=== PATIENT | female | born 1940 | race Caucasian/White ===

== ENCOUNTER → 2017-10-30 11:51 | Outpatient (REF) | payer MEDICARE, SELFPAY ==
[2017-10-30 21:19] LABS: Anion Gap 9.7 mmol/L (3-11); BUN 12 mg/dL (7-18); CO2 27.3 mmol/L (21.0-32.0); CREATININE 0.77 mg/dL (0.55-1.02); Calcium 9.8 mg/dL (8.5-10.1); Chloride 100 mmol/L (98-107); Glucose 123 mg/dL (70-100); Sodium 137 mmol/L (136-145)
== END ==
LOC: NCHCN 11:51
PROVIDERS: PCP Physician Assistant Medical; Visit Provider Physician Assistant Medical
DX: E11.9 Type 2 diabetes mellitus without complications (principal); I10 Essential (primary) hypertension
CPT/HCPCS: 80048

== ENCOUNTER → 2017-11-01 02:54 | Outpatient (CLI) | payer MEDICARE, SELFPAY ==
[2017-11-01 08:44] LABS: ALT 30 U/L (12-78); AST 22 U/L (15-37); Albumin 3.6 g/dL (3.4-5.0); Alkaline Phosphatase 62 U/L (46-116); Anion Gap 9.8 mmol/L (3-11); BUN 13 mg/dL (7-18); Bilirubin, Total 1.2 mg/dL (0.2-1.0); CO2 27.2 mmol/L (21.0-32.0); CREATININE 0.81 mg/dL (0.55-1.02); Calcium 9.1 mg/dL (8.5-10.1); Chloride 100 mmol/L (98-107); Glucose 167 mg/dL (70-100); Potassium 3.7 mmol/L (3.5-5.1); Sodium 137 mmol/L (136-145); Total Protein 7.4 g/dL (6.4-8.2)
[2017-11-01 08:45] LABS: Absolute Basophil Count 0.05 k/cumm (0.0-0.2); Absolute Eosinophil Count 0.11 k/cumm (0.0-0.7); Absolute Lymphocyte Count 1.92 k/cumm (1.2-3.4); Absolute Monocyte Count 0.44 k/cumm (0.11-0.7); Absolute Neutrophil Count 2.48 k/cumm (1.2-6.7); Eosinophils % 2.2; HCT 43.2 % (36.0-46.0); Lymphocytes % 38.4; Mean Corp. HGB Concentration 34.7 g/dL (32.0-36.0); Mean Corpuscular Hemoglobin 32.5 pg (27.0-33.0); Mean Corpuscular Volume 93.7 fL (80-95); Mean Platelet Volume 12.2 fL (8.0-11.0); Monocytes % 8.8; Neutrophils % 49.6; Platelet Count 146 x1000/uL (130-400); RBC 4.61 m/cumm (4.00-5.20); RBC Distribution Width 12.7 % (11.7-14.6)
== END ==
PROVIDERS: PCP Physician Assistant Medical; Visit Provider Internal Medicine Medical Oncology
DX: C50.011 Malignant neoplasm of nipple and areola, right female breast (principal); C50.012 Malignant neoplasm of nipple and areola, left female breast; Z17.0 Estrogen receptor positive status [ER+]
CPT/HCPCS: 36415; 80053; 85025

== ENCOUNTER → 2017-11-15 01:02 | Outpatient (CLI) | payer MEDICARE, SELFPAY ==
--- NOTE | 2017-11-15 13:05 | DI.RPTCT_ITS ---
SYMPTOM/DIAGNOSIS: ABNORMAL FINDINGS ON IMAGING OF LUNG R91.[address] 11/[address] examination of the chest was performed. Previous chest CT of 05/08/17 showed diffuse pulmonary emphysematous and fibrotic changes with focal area of vaguely nodular increased radiodensity in the left upper lobe measuring about 13 mm in greatest diameter. This is again seen on today's examination and is unchanged. No new mass or nodularity identified. No pleural effusion. No mediastinal or hilar adenopathy. Tracheal bronchial tree appears intact throughout. Images obtained through the upper abdomen show incidental finding of a rounded calcified medullary right renal lesion which could represent right renal artery aneurysm, this is incompletely imaged at the lower extent of the imaging field. No additional findings in the visualized upper abdomen. CONCLUSION: 1. Stable left upper lobe vaguely nodular radiodensity consistent with scarring, no change from 05/08/17. 2. Rim calcified rounded 13 mm right renal hilar lesion, question renal arterial aneurysm. Correlation with CT angiography of the abdomen should be considered for further evaluation.
== END ==
PROVIDERS: PCP Physician Assistant Medical; Visit Provider Physician Assistant Medical
DX: R91.8 Other nonspecific abnormal finding of lung field (principal); N28.9 Disorder of kidney and ureter, unspecified; I72.2 Aneurysm of renal artery
CPT/HCPCS: 71250

== ENCOUNTER 2018-01-30 08:21 | Outpatient (CLI) | payer MEDICARE, SELFPAY ==
[2018-01-30 09:05] LABS: CREATININE 0.82 mg/dL (0.55-1.02)
== END 2018-01-30 08:41 ==
LOC: LBO 08:23 → NCHCO 08:27
PROVIDERS: PCP Physician Assistant Medical; Visit Provider Physician Assistant Medical
DX: R91.8 Other nonspecific abnormal finding of lung field (principal); Z13.89 Encounter for screening for other disorder
CPT/HCPCS: 36415; 82565

== ENCOUNTER 2018-01-31 01:13 | Outpatient (CLI) | payer MEDICARE, OTHER, SELFPAY ==
--- NOTE | 2018-01-31 10:06 | DI.CT_ITS ---
SYMPTOM/DIAGNOSIS: F/U ABNL FINDINGS ON CT, R91.8, RENAL HILAR LESION, ? RENAL ANEURYSM ABDOMEN AND PELVIC CTA: CT angiography was performed with multi slice acquisition and multi planar and 3D reconstruction. The study was conducted according to the usual protocol with an intravenous administration of 100 cc's of Omnipaque 350. There are some regions of dependent atelectasis involving the lung bases. There is no evidence of a pleural effusion. The heart is not enlarged. There is no pericardial effusion. Diminished absorption is noted in the liver consistent with fatty infiltration. The patient is status post cholecystectomy. There is no evidence of biliary dilatation. The pancreas is normal. The spleen is intact. There is no evidence of right or left hydronephrosis or a right or left renal mass or nephrolithiasis. There is a rounded, well circumscribed calcification in the hilus of the right kidney measuring up to 16 mm. in diameter which would be consistent with a calcified renal artery aneurysm. The left renal artery is unremarkable. Note is made of diffuse atherosclerotic changes but no aneurysm is seen. The celiac axis and mesenteric arteries appear normal. There is no evidence of bowel obstruction. There is nothing to suggest an acute appendix. There is no evidence of diverticulosis or diverticulitis. There is no localized bowel abnormality given that this study was carried out without oral contrast. The bladder is unremarkable. The reproductive organs as visualized are unremarkable. There is no evidence of a mass or adenopathy in the abdomen or pelvis. 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 Please see the above discussion for further information.
[2018-01-31] MEDS: Omnipaque 350 MG/ML 100 ML BTL IJ (10:09)
== END 2018-01-31 01:33 ==
PROVIDERS: PCP Physician Assistant Medical; Visit Provider Nurse Practitioner Family
DX: R91.8 Other nonspecific abnormal finding of lung field (principal); K76.0 Fatty (change of) liver, not elsewhere classified; I72.2 Aneurysm of renal artery; I70.0 Atherosclerosis of aorta
CPT/HCPCS: 74174; J3490

== ENCOUNTER 2018-04-26 01:48 | Outpatient (CLI) | payer MEDICARE, SELFPAY ==
[2018-04-26 07:46] LABS: Abs Immature Grans 0.01 k/cumm (0.0-0.09); Absolute Basophil Count 0.06 k/cumm (0.0-0.2); Absolute Eosinophil Count 0.14 k/cumm (0.0-0.7); Absolute Lymphocyte Count 1.96 k/cumm (1.2-3.4); Absolute Monocyte Count 0.44 k/cumm (0.11-0.7); Absolute Neutrophil Count 2.43 k/cumm (1.2-6.7); Basophils % 1.2; Eosinophils % 2.8; HCT 43.5 % (36.0-46.0); HGB 14.8 g/dL (12.0-15.5); Immature Grans % 0.2; Lymphocytes % 38.9; Mean Corpuscular Hemoglobin 31.6 pg (27.0-33.0); Mean Corpuscular Volume 92.8 fL (80-95); Mean Platelet Volume 11.6 fL (8.0-11.0); Monocytes % 8.7; Neutrophils % 48.2; Platelet Count 169 x1000/uL (130-400); RBC 4.69 m/cumm (4.00-5.20); RBC Distribution Width 12.9 % (11.7-14.6); White Blood Cell Count 5.04 k/cumm (4.4-10.8)
[2018-04-26 07:58] LABS: ALT 27 U/L (12-78); AST 23 U/L (15-37); Albumin 3.5 g/dL (3.4-5.0); Alkaline Phosphatase 55 U/L (46-116); Anion Gap 9.6 mmol/L (3-11); BUN 19 mg/dL (7-18); Bilirubin, Total 0.9 mg/dL (0.2-1.0); CO2 29.4 mmol/L (21.0-32.0); CREATININE 0.82 mg/dL (0.55-1.02); Calcium 9.6 mg/dL (8.5-10.1); Chloride 99 mmol/L (98-107); Cholesterol 167 mg/dL (50-200); Glucose 145 mg/dL (70-100); HDL Cholesterol 59 mg/dL (40-60); LDL CHOLESTEROL 89 mg/dL (<100); Potassium 3.9 mmol/L (3.5-5.1); Sodium 138 mmol/L (136-145); Total Protein 7.5 g/dL (6.4-8.2); Triglyceride 117 mg/dL (30-150)
[2018-04-26 08:01] LABS: Hemoglobin A1C 6.3 % (4.5-6.2)
== END 2018-04-26 02:08 ==
PROVIDERS: PCP Nurse Practitioner Family; Visit Provider Internal Medicine Medical Oncology
DX: C50.011 Malignant neoplasm of nipple and areola, right female breast (principal); C50.012 Malignant neoplasm of nipple and areola, left female breast; Z17.0 Estrogen receptor positive status [ER+]; E11.9 Type 2 diabetes mellitus without complications; I10 Essential (primary) hypertension
CPT/HCPCS: 80053; 80061; 83721; 83036; 85025

== ENCOUNTER 2018-10-31 09:14 | Outpatient (CLI) | payer MEDICARE, SELFPAY ==
[2018-10-31 10:12] LABS: Absolute Basophil Count 0.04 k/cumm (0.0-0.2); Absolute Lymphocyte Count 1.84 k/cumm (1.2-3.4); Absolute Monocyte Count 0.48 k/cumm (0.11-0.7); Absolute Neutrophil Count 2.31 k/cumm (1.2-6.7); Basophils % 0.8; Eosinophils % 2.1; HGB 14.6 g/dL (12.0-15.5); Lymphocytes % 38.6; Mean Corp. HGB Concentration 34.8 g/dL (32.0-36.0); Mean Corpuscular Hemoglobin 32.2 pg (27.0-33.0); Mean Corpuscular Volume 92.7 fL (80-95); Mean Platelet Volume 11.7 fL (8.0-11.0); Monocytes % 10.1; Neutrophils % 48.4; Platelet Count 157 x1000/uL (130-400); RBC 4.53 m/cumm (4.00-5.20); White Blood Cell Count 4.77 k/cumm (4.4-10.8)
[2018-10-31 10:21] LABS: ALT 31 U/L (12-78); AST 22 U/L (15-37); Albumin 3.6 g/dL (3.4-5.0); Alkaline Phosphatase 58 U/L (46-116); Anion Gap 7.5 mmol/L (3-11); BUN 16 mg/dL (7-18); Bilirubin, Total 1.1 mg/dL (0.2-1.0); CO2 28.5 mmol/L (21.0-32.0); CREATININE 0.75 mg/dL (0.55-1.02); Calcium 9.3 mg/dL (8.5-10.1); Chloride 101 mmol/L (98-107); Glucose 133 mg/dL (70-100); Sodium 137 mmol/L (136-145); Total Protein 7.3 g/dL (6.4-8.2)
[2018-11-01 12:19] LABS: Hepatitis A Antibody IgM Negative (NEGAT); Hepatitis B Core Antibody Negative (NEGAT); Hepatitis B surface Ag Negative (NEGAT); Hepatitis C Ab w Rflx HCV PCR Negative (NEGAT)
== END 2018-10-31 09:34 ==
PROVIDERS: PCP Nurse Practitioner Family; Referring Provider Nurse Practitioner Family
DX: C50.411 Malignant neoplasm of upper-outer quadrant of right female breast (principal); Z17.0 Estrogen receptor positive status [ER+]; C50.412 Malignant neoplasm of upper-outer quadrant of left female breast; K76.0 Fatty (change of) liver, not elsewhere classified
CPT/HCPCS: 36415; 80053; 86704; 86709; 86803; 87340; 85025

== ENCOUNTER 2019-01-16 15:34 | Outpatient (REF) | payer MEDICARE, SELFPAY ==
[2019-01-16 20:22] LABS: CREATININE 1.06 mg/dL (0.55-1.02); Estimated GFR 50.27 (mL/min/1.73m2)
[2019-01-16 20:23] LABS: BUN 17 mg/dL (7-18)
== END 2019-01-16 15:54 ==
LOC: LBN 15:34
PROVIDERS: PCP Nurse Practitioner Family; Visit Provider Surgery Vascular Surgery
DX: I72.2 Aneurysm of renal artery (principal)
CPT/HCPCS: 84520; 82565

== ENCOUNTER 2019-03-13 00:57 | Outpatient (CLI) | payer MEDICARE, SELFPAY ==
--- NOTE | 2019-03-13 16:43 | DI.DEXA_ITS ---
EXAM: XR DEXA BONE DENSITY W/WO FRED CLINICAL HISTORY: MALIGNANT NEOPLASM RT BREAST, C50.911, Z17.1, HYPOGONADISM, female COMPARISON: No exams were available for comparison FINDINGS: DEXA scan was performed according to the usual protocol. Findings for left hip scanning are T-score 1.6 with left femoral neck T-score 1.3. Prior examination of September 2010 showed left hip T-score 1.8. Lumbar spine scanning shows T-score 2.3. Prior examination shows T-score 2.1. Left forearm scanning shows T-score 0.4. Prior examination shows T-score 1.3. IMPRESSION: Findings consistent with normal bone density according to WHO criteria. Lateral vertebral scanogram shows no evidence of a vertebral compression fracture.
== END 2019-03-13 01:17 ==
PROVIDERS: PCP Nurse Practitioner Family; Visit Provider Registered Nurse Oncology
DX: E28.39 Other primary ovarian failure (principal); C50.911 Malignant neoplasm of unspecified site of right female breast; Z17.1 Estrogen receptor negative status [ER-]
CPT/HCPCS: 77080

== ENCOUNTER 2019-04-30 07:07 | Outpatient (CLI) | payer MEDICARE, SELFPAY ==
[2019-04-30 07:49] LABS: Anion Gap 9.1 mmol/L (3-11); BUN 17 mg/dL (7-18); CO2 28.9 mmol/L (21.0-32.0); CREATININE 0.74 mg/dL (0.55-1.02); Calcium 9.3 mg/dL (8.5-10.1); Calculated LDL 78 mg/dL (<100); Chloride 100 mmol/L (98-107); Cholesterol 170 mg/dL (<200); Glucose 139 mg/dL (74-106); HDL Cholesterol 51 mg/dL (40-60); Potassium 3.9 mmol/L (3.5-5.1); Sodium 138 mmol/L (136-145); Triglyceride 207 mg/dL (<150)
== END 2019-04-30 07:27 ==
PROVIDERS: PCP Nurse Practitioner Family; Visit Provider Nurse Practitioner Family
DX: E11.9 Type 2 diabetes mellitus without complications (principal); I10 Essential (primary) hypertension; E78.1 Pure hyperglyceridemia
CPT/HCPCS: 36415; 80048; 80061

== ENCOUNTER 2019-05-07 01:05 | Outpatient (CLI) | payer MEDICARE, SELFPAY ==
--- NOTE | 2019-05-07 12:35 | DI.US_ITS ---
EXAM: US AXILLA LT CLINICAL HISTORY: PAIN IN AXILLA M79.629, DULL ACHE, OVER PAST FEW MONTHS, HX BILAT CANCER, BILAT MA STECTOMIES Z85.3 TECHNIQUE: Ultrasound performed using standard protocol. COMPARISON: CHEST WITHOUT CONTRAST from 11/15/2017 FINDINGS: No mass or fluid collection is seen. No abnormalities identified in the area of the patient's pain. Just medial to the area of the patient's pain, there is a normal-appearing axillary lymph node with a fatty hilum and thin wall. It measures 3.1 x 1.1 x 1.7 cm. IMPRESSION: A lymph node with a central fatty hilum is seen in the left axilla, which is medial to the area of th e patient's pain.
== END 2019-05-07 01:25 ==
PROVIDERS: PCP Nurse Practitioner Family; Visit Provider Nurse Practitioner Family
DX: Z85.3 Personal history of malignant neoplasm of breast (principal); Z90.13 Acquired absence of bilateral breasts and nipples; M79.622 Pain in left upper arm; R59.0 Localized enlarged lymph nodes
CPT/HCPCS: 76642

== ENCOUNTER 2019-11-04 09:37 | Outpatient (REF) | payer MEDICARE, SELFPAY ==
[2019-11-04 19:45] LABS: Iron 121 ug/dL (50-170); Total Iron Binding Capacity 365 ug/dL (250-450); Transferrin Sat 33 % (15-50)
[2019-11-04 20:05] LABS: ALT 32 U/L (14-59); AST 24 U/L (15-37); Alkaline Phosphatase 52 U/L (46-116); Anion Gap 11.9 mmol/L (3-11); BUN 16 mg/dL (7-18); Bilirubin, Total 1.2 mg/dL (0.2-1.0); CO2 25.1 mmol/L (21.0-32.0); Calcium 9.7 mg/dL (8.5-10.1); Chloride 100 mmol/L (98-107); Glucose 137 mg/dL (74-106); Potassium 4.1 mmol/L (3.5-5.1); Sodium 137 mmol/L (136-145); Total Protein 7.7 g/dL (6.4-8.2)
[2019-11-04 20:21] LABS: Lipase 141 U/L (73-393)
== END 2019-11-04 09:57 ==
LOC: NCHCN 09:37
PROVIDERS: PCP Nurse Practitioner Family; Visit Provider Nurse Practitioner Family
DX: E11.9 Type 2 diabetes mellitus without complications (principal); I10 Essential (primary) hypertension; R10.11 Right upper quadrant pain
CPT/HCPCS: 80053; 83690; 83540; 83550

== ENCOUNTER 2019-11-13 01:38 | Outpatient (CLI) | payer MEDICARE, SELFPAY ==
--- NOTE | 2019-11-13 | DI.US_ITS ---
EXAM: US ABDOMEN CLINICAL HISTORY: FATTY LIVER DISEASE,K76.0,RUQ ABD PAIN,R10.11,S/P JEMAL TECHNIQUE: Ultrasound performed using standard protocol. COMPARISON: CT CT CHEST W from 11/13/2019 FINDINGS: There is slightly increased liver echogenicity. No focal liver lesions or biliary dilatation is see n. The patient is status post cholecystectomy. The aorta is normal in diameter. The spleen, pancre as and left kidney are unremarkable. There is no right upper quadrant fluid. There is a calcificati on in the right renal hilum noted on previous CT to represent a calcified aneurysm. There is no hydr onephrosis. IMPRESSION: No acute abnormality. DATA REPOSITORY:
--- NOTE | 2019-11-13 | DI.CT_ITS ---
EXAM: CT CHEST W CLINICAL HISTORY: PERSISTENT COUGH, H/O BREAST CA,H/O RENAL ARTERY ANEURYSM,R05 TECHNIQUE: Imaging Protocol: Axial computed tomography images with coronal and sagittal reformatted images were created and reviewed CONTRAST MATERIAL: Intravenous: Omnipaque 350 Contrast volume:100 cc COMPARISON: CT CHEST WITHOUT CONTRAST from 11/15/2017 FINDINGS: Tracheobronchial tree: Patent where visualized. Mediastinum and Rosa: No dominant adenopathy or fluid collection. Pulmonary parenchyma: No consolidation or dominant measurable mass. Mild peripheral fibrotic changes are again noted. There is a stable area of scarring in the left upper lobe.. Pleura: No effusion or pneumothorax. Heart: The heart is not dilated. Mild coronary artery calcifications are seen. Mitral valve calcifi cations. Aorta: Thoracic aorta non-dilated. Moderate calcifications. Heavier calcification in the abdominal po rtion. Upper abdomen: Stable calcified right renal artery aneurysm. Homogeneous, symmetric renal perfusion. Status post cholecystectomy. Lymph nodes: Within normal limits. Bones: No lytic or blastic lesions. Degenerative disc changes. Soft tissues: Status post bilateral mastectomy. IMPRESSION: Stable mild peripheral fibrotic changes. No evidence mass or acute infiltrate. RADIATION DOSE DELIVERED: 596.54mGy.cm Total DLP DATA REPOSITORY: All CT scans at this facility are submitted to the National Radiology Data Registry (NRDR) Dose Index Registry (DIR) with the [employer] (ACR). RADIATION OPTIMIZATION: All CT scans at this facility use at least one of these dose optimization te chniques: automated exposure control; mA and/or kV adjustment per patient size (includes targeted exa ms where dose is matched to clinical indication); or iterative reconstruction.
[2019-11-13] MEDS: Normal Saline - Diluent 50 ML VIAL IV (08:50)
[2019-11-13] MEDS: Normal Saline Flush 10 ML SYR IVP (08:50)
[2019-11-13] MEDS: Omnipaque 350 MG/ML 100 ML BTL IJ (08:51)
== END 2019-11-13 01:58 ==
PROVIDERS: PCP Nurse Practitioner Family; Visit Provider Nurse Practitioner Family
DX: R05 Cough (principal); Z85.3 Personal history of malignant neoplasm of breast; Z86.79 Personal history of other diseases of the circulatory system; K76.0 Fatty (change of) liver, not elsewhere classified; R10.11 Right upper quadrant pain
CPT/HCPCS: 71260; 76700; J3490

== ENCOUNTER 2019-11-18 16:52 | Outpatient (REF) | payer MEDICARE, SELFPAY ==
[2019-11-18 20:17] LABS: Ferritin 167 ng/mL (8-252)
== END 2019-11-18 17:12 ==
LOC: NCHCN 16:52
PROVIDERS: PCP Nurse Practitioner Family; Visit Provider Nurse Practitioner Family
DX: K76.0 Fatty (change of) liver, not elsewhere classified (principal); R10.11 Right upper quadrant pain
CPT/HCPCS: 82728

== ENCOUNTER 2019-11-25 07:12 | Outpatient (CLI) | payer MEDICARE, SELFPAY ==
[2019-11-26 14:28] LABS: COVID-19 RT-PCR Result NEGATIVE (Negative)
== END 2019-11-25 07:32 ==
PROVIDERS: Family Medicine; PCP Nurse Practitioner Family; Visit Provider Nurse Practitioner Family
DX: R05 Cough (principal)
CPT/HCPCS: U0003

== ENCOUNTER → 2019-11-26 10:31 | Outpatient (BNVA) | payer MEDICARE, SELFPAY | PROVIDERS: PCP Nurse Practitioner Family; Referring Provider Nurse Practitioner Family; Visit Provider Internal Medicine Cardiovascular Disease | DX: R07.9 Chest pain, unspecified (principal); I25.10 Atherosclerotic heart disease of native coronary artery without angina pectoris; I10 Essential (primary) hypertension | CPT/HCPCS: 99203; 99214 ==

== ENCOUNTER 2019-11-28 04:38 | Outpatient (CLI) | payer MEDICARE, SELFPAY ==
[2019-11-28] MEDS: Albuterol HFA 18 GM 200 PUFF INH IH (10:07)
[2019-11-28] MEDS: Methacholine 100 MG VIAL IH (10:07)
[2019-11-28] MEDS: Inhaler, Assist Device 1 EACH MC (10:08)
--- NOTE | 2019-12-04 07:39 | W.PFT ---
Date of service: 11/28/19 Time of Service: 08:03 Pulmonary Function Test Result Interpretation Spirometry: No evidence of obstructive airways disease, no bronchodilator response Lung Volumes: No evidence of restriction Diffusion Capacity: Normal Airway Pressure: Normal Impression Normal pulmonary function study, clinical correlation recommended This study was compared to previous one from 09/01/2006, patient has a total of 520 cc decline in FVC, FEV1 has remained stable, diffusion capacity has largely remained stable, although alveolar volume has declined Methacholine Challnege Test Date of Service Date of Service: 2019 Note After normal pulmonary function test methacholine challenge testing was carried out up to methacholine concentration of 16 mg/mL. At that point there was a 17% drop in FEV1. Impression Negative methacholine challenge test. It is of concern, that there was progressive decline in FEV1 with increasing concentration of methacholine, though the magnitude did not meet criteria for positive test. Clinical correlation recommended
== END 2019-11-28 04:58 ==
PROVIDERS: PCP Nurse Practitioner Family; Visit Provider Nurse Practitioner Family
DX: R05 Cough (principal)
CPT/HCPCS: 94060; 94726; 94729; 95070; 94010; J7674

== ENCOUNTER 2019-12-09 00:40 | Outpatient (CLI) | payer MEDICARE, SELFPAY ==
--- NOTE | 2019-12-09 07:00 | DI.NM_ITS ---
APPROVED REPORT Exam: Exercise Treadmill Patient Location: Out-Patient Room/Bed: Stress Nurse: Stephanie Doe RN BMI: 31.88 Baseline Rhythm: Sinus Rhythm, First Degree Heart Block. Abnormal R wave progression, early transitio n. Borderline prolonged QT interval. Indications: Over the last few months patient reports left sided sharp chest pain mostly when she get s in bed at night time and lies on left side. She states discomfort does not last more than a few min utes and is not associated with any other symptoms. She also reports ???bouts of dizziness??? when ch anging positions (lying to sitting and sitting to standing) even when she takes her time getting up. Medical History Medical History: Incomplete RBBB. Cardiac Medications: Hydrochlorothiazide. Allergies: Red Yeast Rice, Lisinopril, Adhesive, Aspirin, Codeine, Meperidine, Niacin. Cardiac Risk Factors: FHX of CAD, HTN, Diabetes (non-insulin) Previous Cardiac Procedures: None Pretest Chest Pain Characteristics: None reported per patient. Exercise History: Physically active Physical Disabilities: None Lung Sounds: Clear to auscultation Heart Sounds: Regular Stress Test Details Test: Exercise stress testing was performed using a Landon protocol. Nuclear Acquisition: Rest Tc-99m/Stress Tc-99m 1 day Rest Isotope: Tc-99m Sestamibi. Dose: 10.7 Date: 12/09/2019 Injection Time: 0840 Stress Isotope: Tc-99m Sestamibi. Dose: 30.2 Date: 12/09/2019 Injection Time: 1015 HR Resting HR Supine: 64 bpm Max Heart Rate (APMHR): 142 bpm Resting HR Standin bpm Target HR (85% APMHR): 120 bpm Max HR Achieved: 133 bpm % of APMHR: 93 HR response to stress: Normal HR response to stress BP Resting BP Supine: 128/66 mmHg Resting BP Standin/68 mmHg Max BP: 144/64 mmHg BP response to stress: Normal blood pressure response to stress. ECG Resting ECG: Sinus Rhythm, First Degree Heart Block. Abnormal R wave progression. Stress ECG: No significant ST segment changes noted. Arrhythmia: None Recovery ECG: Sinus Rhythm Recovery ST Change: Normal Recovery Arrhythmia: None Clinical Reason for Termination: Dyspnea Stress Symptoms: Dyspnea Exercise duration: 3 min01 sec Highest Stage Reached: Stage 2: 2.5 mph at 12% grade. Exercise capacity: 4.65 METs Functional Capacity: Mildly deminished capacity Stress ECG Conclusion 1. The patient exercised for 3 minutes (5 METS) exercise was stopped due to dyspnea. 2. The patient had no evidence of ischemia on the EKG portion of the exam. Stress Test Summary STAGE Time (mins) Speed (mph) Grade (%) HR BP SYMPTOMS METS Supine 64 128/66 Standing 69 130/68 1 3 1.7 10 133 4.6 1 min recovery 118 138/60 3 min recovery 89 144/64 6 min recovery 83 130/68 9 min recovery 77 124/70 MPI Conclusion Ejection fraction was 57% with stress. There were no wall motion abnormalities. There is a small area of decreased perfusion at the apex in both rest and stress imaging likely repre senting artifact. Given the amount of bowel uptake, this likely represents a normal SPECT stress test. Radiologist Interpretation Radiologist agrees with [facility] Hand's Interpretation. Radiologist Interpretation by: Gabriel Jauregui MD Interpretation Date/Time: 12/09/2019 14:43:46
== END 2019-12-09 01:00 ==
PROVIDERS: PCP Nurse Practitioner Family; Visit Provider Internal Medicine Cardiovascular Disease
DX: R07.9 Chest pain, unspecified (principal); R42 Dizziness and giddiness; Z82.49 Family history of ischemic heart disease and other diseases of the circulatory system; I10 Essential (primary) hypertension; E11.9 Type 2 diabetes mellitus without complications; I45.10 Unspecified right bundle-branch block
CPT/HCPCS: 78452; 93016; 93018; 93017

== ENCOUNTER → 2019-12-17 14:30 | Outpatient (BNVA) | payer MEDICARE, SELFPAY | PROVIDERS: PCP Nurse Practitioner Family; Referring Provider Nurse Practitioner Family; Visit Provider Internal Medicine Cardiovascular Disease | DX: I25.10 Atherosclerotic heart disease of native coronary artery without angina pectoris (principal); I10 Essential (primary) hypertension; Z71.2 Person consulting for explanation of examination or test findings | CPT/HCPCS: 99212; 99441 ==

== ENCOUNTER 2020-02-28 21:47 | Outpatient (REF) | payer MEDICARE, SELFPAY | END 2020-02-28 22:07 | LOC: NCHCN 21:47 | PROVIDERS: PCP Nurse Practitioner Family; Visit Provider Nurse Practitioner Family | DX: R35.0 Frequency of micturition (principal) | CPT/HCPCS: 87086 ==

== ENCOUNTER 2020-04-21 03:51 | Outpatient (CLI) | payer MEDICARE, SELFPAY ==
[2020-04-21 10:13] LABS: Anion Gap 9.4 mmol/L (3-11); BUN 17 mg/dL (7-18); CO2 28.6 mmol/L (21.0-32.0); CREATININE 0.79 mg/dL (0.55-1.02); Calcium 9.5 mg/dL (8.5-10.1); Calculated LDL 88 mg/dL (<100); Chloride 99 mmol/L (98-107); Cholesterol 180 mg/dL (<200); Glucose 145 mg/dL (74-106); HDL Cholesterol 60 mg/dL (40-60); Potassium 3.9 mmol/L (3.5-5.1); Sodium 137 mmol/L (136-145); Triglyceride 163 mg/dL (<150)
[2020-04-22 11:28] LABS: Hepatitis C Ab w Rflx HCV PCR Negative (Negative)
== END 2020-04-21 04:11 ==
PROVIDERS: PCP Nurse Practitioner Family; Visit Provider Nurse Practitioner Family
DX: I10 Essential (primary) hypertension (principal); E11.9 Type 2 diabetes mellitus without complications; Z11.59 Encounter for screening for other viral diseases
CPT/HCPCS: 36415; 80048; 80061; 86803

== ENCOUNTER 2020-05-12 01:11 | Outpatient (CLI) | payer MEDICARE, SELFPAY ==
--- NOTE | 2020-05-12 | DI.MRI_ITS ---
EXAM: MR LUMBAR SPINE WO/W CLINICAL HISTORY: RT LOW BACK PAIN, M54.5,RT LEG WEAKNESS,H/O BREAST CA. TECHNIQUE: Multiplanar multisequence MRI was performed. COMPARISON: No exams were available for comparison FINDINGS: MR examination lumbosacral spine was performed according to the usual protocol with additional pre an d post contrast T1 weighted fat sat imaging. Patient reportedly has a history of breast carcinoma. No bony signal abnormality seen. No evidence of an enhancing lesion of the bones in the lumbar regio n. Conus medullaris appears intact. No significant findings at T11-12 or T12-L1 levels. Slight disc bulge noted at L1-2 level, no central canal spinal stenosis, neural foraminal stenosis, o r disc herniation. At L2-3, there is mild hypertrophic degenerative change of the facet joints. There is a moderate dis c bulge. No disc herniation, central canal spinal stenosis, or neural foraminal stenosis. There may be a minimal annular disc tear. At the L3-4 level, there is a moderate disc bulge and there is moderate facet hypertrophic degenerati ve change. There is mild central canal spinal stenosis. There is a disc bulge without evidence of a focal disc herniation. No neural foraminal stenosis. At L4-5, there is a moderate disc bulge. There is moderate facet hypertrophic degenerative change. There is mild central canal spinal stenosis. There is no evident neural foraminal stenosis or disc h erniation. At L5-S1, there is a mild disc bulge and there is a small right paracentral disc herniation which pro jects above the disc level, this could impinge the right L1 nerve root, please correlate with the pat ient's neurologic examination. No bony central canal spinal stenosis or neural foraminal stenosis. Mild facet hypertrophic degenerative changes. IMPRESSION: Mild central canal spinal stenosis at L3-4 and L4-5. Small right paracentral disc herniation at L5-S1, question impingement on right S1 nerve root. Pleas e correlate clinically. No evidence of bony metastatic disease. DATA REPOSITORY:
[2020-05-12] MEDS: Gadoterate meglumine 20 ML VIAL 16 ML IVP (09:29)
[2020-05-12] MEDS: Normal Saline Flush 10 ML SYR IVP (09:30)
== END 2020-05-12 01:12 ==
LOC: DI 01:14
PROVIDERS: PCP Nurse Practitioner Family; Visit Provider Nurse Practitioner Family
DX: M48.061 Spinal stenosis, lumbar region without neurogenic claudication (principal); M51.27 Other intervertebral disc displacement, lumbosacral region
CPT/HCPCS: 72158

== ENCOUNTER → 2020-06-15 08:00 | Outpatient (BNVA) | payer MEDICARE, SELFPAY | PROVIDERS: PCP Nurse Practitioner Family; Referring Provider Nurse Practitioner Family; Visit Provider Student in an Organized Health Care Education/Training Program | DX: M70.61 Trochanteric bursitis, right hip (principal) | CPT/HCPCS: 99213 ==

== ENCOUNTER 2020-10-28 03:25 | Outpatient (CLI) | payer MEDICARE, SELFPAY ==
[2020-10-28 09:04] LABS: Anion Gap 10.1 mmol/L (3-11); BUN 20 mg/dL (7-18); CO2 27.9 mmol/L (21.0-32.0); CREATININE 0.9 mg/dL (0.55-1.02); Calcium 9.5 mg/dL (8.5-10.1); Chloride 101 mmol/L (98-107); Glucose 142 mg/dL (74-106); Potassium 4.1 mmol/L (3.5-5.1); Sodium 139 mmol/L (136-145)
== END 2020-10-28 03:26 | disposition home or self-care (01) ==
LOC: LBO 03:28
PROVIDERS: PCP Nurse Practitioner Family; Visit Provider Nurse Practitioner Family
DX: E11.9 Type 2 diabetes mellitus without complications (principal); I10 Essential (primary) hypertension
CPT/HCPCS: 36415; 80048; 83036

== ENCOUNTER 2020-11-03 10:34 | Outpatient (REF) | payer MEDICARE, SELFPAY ==
[2020-11-03 21:40] LABS: HCT 40.5 % (36.0-46.0); HGB 13.9 g/dL (11.2-15.7); MCH 31.9 pg (27.0-33.0); MCHC 34.3 % (32.0-36.0); MCV 92.9 fL (80-95); MPV 12.9 fL (8.0-11.0); Platelet Count 175 10^3/uL (130-400); RBC 4.36 10^6/uL (3.93-5.22); RDW 12.2 % (11.7-14.6)
[2020-11-03 21:57] LABS: ALT 37 U/L (14-59); AST 24 U/L (15-37); Albumin 3.9 g/dL (3.4-5.0); Alkaline Phosphatase 48 U/L (46-116); Bilirubin, Direct 0.2 mg/dL (0.0-0.2); Bilirubin, Total 1.2 mg/dL (0.2-1.0); Total Protein 7.3 g/dL (6.4-8.2)
== END 2020-11-03 10:35 | disposition home or self-care (01) ==
LOC: NCHCN 10:34
PROVIDERS: PCP Nurse Practitioner Family; Visit Provider Nurse Practitioner Family
DX: K76.0 Fatty (change of) liver, not elsewhere classified (principal)
CPT/HCPCS: 80076; 85027

== ENCOUNTER → 2020-12-24 13:59 | Outpatient (BNVA) | payer MEDICARE, SELFPAY | PROVIDERS: PCP Nurse Practitioner Family; Referring Provider Nurse Practitioner Family; Visit Provider Internal Medicine Cardiovascular Disease | DX: I25.10 Atherosclerotic heart disease of native coronary artery without angina pectoris (principal); I10 Essential (primary) hypertension | CPT/HCPCS: 99213 ==

== ENCOUNTER 2020-12-30 12:23 | Outpatient (REF) | payer MEDICARE, SELFPAY ==
--- OUTSIDE RECORDS SUMMARY | 2020-12-30 12:34 | XMS_ITS ---
:1940 Author Care Team Providers Name Role Phone DR. JILLIAN CUEVAS Primary Care Provider [phone] DR. GHAZAL LOPEZ Referring Provider [phone] RIVAS CARLOS MD OTHER [phone] JOHNNY GARCÍA APRN Primary Care Provider [phone] Allergies Code Code System Name Reaction Severity Status Onset Adhesive Tape ? ? Active ? 1191 RxNorm Aspirin ? ? Active ? 2670 RxNorm Codeine Nausea ? Active ? 913175 RxNorm Demerol Other ? Active ? 27315 RxNorm Lisinopril Cough ? Active ? 8211 RxNorm Niacin ? ? Active ? 101078 RxNorm Red Yeast Rice ? ? Active ? Medications Name Status Start Date Stop Date ? ? acyclovir 800 mg tablet Unknown ? Not avai lable amoxicillin 875 mg-potassium Completed ? clavulanate 125 mg tablet anastrozole 1 mg tablet Active ? Not avai lable TAKE ONE TABLET BY MOUTH EVERY DAY azithromycin 250 mg tablet Completed ? 09/24 Benefiber Clear SF (dextrin) Completed ? 09/2019 cholecalciferol (vit D3) 1,000 unit-vitamin K2 (MK4) 100 mcg tab let Active ? Not available Take by oral route. clindamycin phosphate 1 % topical Completed ? 09/06/2017 solution Fish Oil Active ? Not available fluticasone propionate 50 mcg/actuation Active ? Not available nasal spray,suspension Glucosamine Active ? Not available hydrochlorothiazide 25 mg tablet Active ? Not available TAKE ONE TABLET BY MOUTH EVERY DAY ketoconazole 2 % topical cream Completed ? 1 05/14/2016 lansoprazole 30 mg capsule,delayed release Active ? Not available TAKE ONE CAPSULE BY MOUTH AT BEDTIME magnesium Active ? Not available metformin 500 mg tablet Completed ? 10/01/19 metformin ER 500 mg tablet,extended release 24 hr Active ? Not available TAKE ONE TABLET BY MOUTH TWICE A DAY multivitamin Active ? Not available nitrofurantoin monohydrate/macrocrystals 100 mg capsule Active ? Not available TAKE ONE CAPSULE BY MOUTH TWICE A DAY FOR 5 DAYS OneTouch Ultra Test strips Active ? Not a vailable USE 1 STRIP TWICE A DAY DIRECTED Prevacid Active ? Not available Ventolin HFA 90 mcg/actuation aerosol Active ? Not available inhaler Problems Name Status Onset Date Source ? Malignant Tumor of Breast Active ? Encoun ter Abnormal Findings on Diagnostic Imaging of Active ? Encounter Breast Breast Lump Active ? Encounter Procedures Date Name Performed by ? 08/20/2015 Mastectomy and [place] Node Biopsy Info rmation not available Notes: T1cN0 IDC, with multiquadrant DCIS 08/20/2015 Prophylactic Contralateral Mastectomy In formation not available Notes: T1cNX ILC 07/30/2015 Stereotactic Breast Biopsy Information n ot available Notes: UIQ right IDC /1+ ? Cholecystectomy Information not avai lable ? Tubal Ligation Information not avai lable Results Lab Results None recorded. Past Encounters 10/21/2020 Malignant Tumor of Breast Lupe Ovalle MD: [address] [place] [address], [address] [phone], [place]. 10/01/2019 Malignant Tumor of Breast Lupe Ovalle MD: [address] [place] [address], [address] [phone], [place]. Social History Tobacco Smoking Status Former Smoker Notes: quit 15 years ago Vaccine List Vaccine Type COVID-19, mRNA, LNP-S, PF, 100 mcg/0.5 m L dose 04/23/2020 05/22/2020 Plan of Care Reminders Provider Appointments None ? ? recorded. Lab None ? ? recorded. Referral None ? ? recorded. Procedures None ? ? recorded. Surgeries None ? ? recorded. Imaging None ? ? recorded. Vitals 10/21/2020 11:30AM FOLLOW UP Height Weight BMI 5 ft 3 in 180 lbs 31.9 kg/m2 10/01/2019 11:00AM FOLLOW UP Height Weight BMI 5 ft 3 in 180 lbs 31.9 kg/m2 09/24/2018 01:00PM FOLLOW UP Height Weight BMI 5 ft 3 in 194 lbs 34.4 kg/m2 09/06/2017 10:30AM FOLLOW UP Height Weight BMI 5 ft 3 in 194 lbs 34.4 kg/m2 03/13/2017 01:00PM FOLLOW UP Height Weight BMI 5 ft 3 in 194 lbs 34.4 kg/m2 09/06/2016 01:00PM FOLLOW UP Height Weight BMI 5 ft 3 in 194 lbs 34.4 kg/m2 03/09/2016 01:00PM FOLLOW UP Height Weight BMI 5 ft 3 in 194 lbs 34.4 kg/m2 08/06/2015 01:15PM NEW CANCER Height Weight BMI 5 ft 3 in 196 lbs 34.7 kg/m2 07/27/2015 09:00AM NEW PT Height Weight BMI 5 ft 3 in 196 lbs 34.7 kg/m2
--- OUTSIDE RECORDS SUMMARY | 2020-12-30 12:35 | XMS_ITS | Encounter Summary ---
:1940 Author Care Team Providers Name Role Phone Dr. Henna Otero Primary Care Provider [phone] Jen Celeste APRN Primary Care Provider [phone] Dr. Amber Mendoza Referring Provider [phone] Tevin Mederos MD OTHER [phone] Reason for Visit Malignant tumor of breast Assessment and Plan 1. Malignant tumor of breast Patient is doing well without evidence of recurrent disease. She will return to see me in 12 months o r sooner if problems arise with her imaging or self exam. Continue AI. Discussion Note: None recorded.Patient educational handouts: No information available. Plan of Care Reminders Provider Appointments Follow up on or around Kim Ovalle, 10/21/2021 Lab None ? ? recorded. Referral None ? ? recorded. Procedures None ? ? recorded. Surgeries None ? ? recorded. Imaging None ? ? recorded. Medications Name Start Date ? ? anastrozole 1 mg tablet ? TAKE ONE TABLET BY MOUTH EVERY DAY cholecalciferol (vit D3) 1,000 unit-vitamin K2 (MK4) 1 00 mcg tablet ? Take by oral route. Fish Oil ? fluticasone propionate 50 mcg/actuation nasal spray,mendez spension ? Glucosamine ? hydrochlorothiazide 25 mg tablet ? TAKE ONE TABLET BY MOUTH EVERY DAY lansoprazole 30 mg capsule,delayed release ? TAKE ONE CAPSULE BY MOUTH AT BEDTIME magnesium ? metformin ER 500 mg tablet,extended release 24 hr ? TAKE ONE TABLET BY MOUTH TWICE A DAY multivitamin ? nitrofurantoin monohydrate/macrocrystals 100 mg capsul e ? TAKE ONE CAPSULE BY MOUTH TWICE A DAY FOR 5 DAYS OneTouch Ultra Test strips ? USE 1 STRIP TWICE A DAY DIRECTED Prevacid ? Ventolin HFA 90 mcg/actuation aerosol inhaler ? Medications Administered None recorded. Vitals Height Weight BMI 5 ft 3 in 180 lbs 31.9 kg/m2 Results Lab Results None recorded. Allergies Code Code System Name Reaction Severity Onset Adhesive Tape ? ? ? 1191 RxNorm Aspirin ? ? ? 2670 RxNorm Codeine Nausea ? ? 777389 RxNorm Demerol Other ? ? 96190 RxNorm Lisinopril Cough ? ? 2717 RxNorm Niacin ? ? ? 357083 RxNorm Red Yeast Rice ? ? ? Problems Name Status Onset Date Source ? Malignant Tumor of Breast Active ? Encoun ter Abnormal Findings on Diagnostic Imaging of Active ? Encounter Breast Breast Lump Active ? Encounter Procedures Date Name Performed by ? 08/20/2015 Mastectomy and [place] Node Biopsy Info rmation not available Notes: T1cN0 IDC, with multiquadrant DCIS 08/20/2015 Prophylactic Contralateral Mastectomy In formation not available Notes: T1cNX ILC 07/30/2015 Stereotactic Breast Biopsy Information n ot available Notes: UIQ right IDC /1+ ? Cholecystectomy Information not avai lable ? Tubal Ligation Information not avai lable Vaccine List Vaccine Type COVID-19, mRNA, LNP-S, PF, 100 mcg/0.5 m L dose 04/23/2020 05/22/2020 Social History Tobacco Smoking Status Former Smoker Notes: quit 15 years ago What is your level of alcohol None consumption? Marital status What was the date of your most 09/24/2018 recent tobacco screening? 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 Relation Problem Onset Age of Age Notes Daughter Malignant tumor of 46 N/A BRCA 1,2 neg breast Breast ovarian large panel - Victorina Rast Daughter Leukemia 55 N/A (No Notes) Father Malignant tumor of 71 N/A (No Notes ) pancreas Maternal Aunt Malignant neoplasm of (No N/A (No N otes) uterus Information) Maternal Uncle Malignant tumor of lung (No N/A (N o Notes) Information) Paternal Aunt Malignant neoplasm of (No N/A bone, stomach uterus Information) Paternal Grandmother Malignant tumor of 55 N/A ( No Notes) breast Paternal Grandfather Malignant tumor of colon (No N/A (No Notes) Information) Sister Malignant tumor of 60 79 (No Notes ) breast Son Malignant neoplasm of (No N/A (No No chandler) skin Information) Son Hemochromatosis (No N/A (No Notes) Information) Brother Hemochromatosis (No N/A (No Notes) Information) Unspecified Relation Hemochromatosis (No N/A neph ew Information) Functional Status Unknown. Past Encounters 10/21/2020 Malignant Tumor of Breast Lupe Ovalle MD: [id number] [facility], [address], [place] [address], Ph. History of Present Illness ? Breast Cancer Follow up Reported By: Patient HPI: Location: bilateral. Identif ied: routine mammogram. Pathology: date of Diagnosis:, Invasive Cancer T1c, N0, T1c, N0, T1c, N0, , ER positive, TN positive, HER 2 negative, On cotypeDx Recurrence score: 23; AI Notes: Lissa comes in for follow up. She feels well and has no complaints. Review of Systems ? Breast Follow up Reported By: Patient Constitutional: Constitutional: no significa nt weight change, happy/content, normal activity level, no fa tigue ENMT: ENMT: no hoarseness, no diff iculty swallowing; hearing loss Cardiovascular: Cardiovascular: no chest melissa n, normal heart rate Chest/Breasts: Breasts: no lumps, no tender ness, no discharge, no change in breast skin, no 'orange peel ' appearance Respiratory: Respiratory: no cough, no pa in with respiration, normal respiration Gastrointestinal: GI: no abdominal pain, no na usea, no vomiting, no constipation, no blood in st ools, No abdominal distension; reflux Genitourinary: : no vaginal dryness Musculoskeletal: Musculoskeletal: no lymphede ma, no joint swelling, no myalgia, moves all extremities well, no joint pain Skin: Skin: no redness, no rash, n o hives, no skin lesions Neurological symptoms: Neuro: no numbness, no weakn ess, no tingling, no shooting pain, no headache, no dizzin ess Psychiatric: Psych: no depression, no anx iety, no insomnia, no stress, no loss of interest Endocrine: Endocrine: no easy bruising, hot flashes Physical Exam ? Breast Exam Reported By: Patient Constitutional: General Appearance: healthy- appearing, well-nourished, well-develop ed Lymph Nodes: Axillary Normal axillary exa m: bilaterally, no tenderness. Cervical No cerv ical adenopathy. Supraclavicular No supraclav icular adenopathy Breast exam in the sitting and supine Inspection/Palpa tion: no skin changes, no positions: erythema, no induration, no tenderness, no distinct masses, normal axil andie lymph nodes; well healed bilateral mastec juanita scars with dimpling centrally on the ri ght side and no nodularity Musculoskeletal: Extremities/skeletal: No swe lling of the left arm, no spinous or bony tend erness, No swelling of the right arm Abdomen: Inspection/Palpation: soft, non-distended, no tenderness, no hepatomegaly, no splenomegaly, no masses Notes: Left axillary US negative fo r suspicious appearing LN's.
[2021-01-01 12:09] LABS: COVID-19 RT-PCR UVMMC Result Negative (Negative)
== END 2020-12-30 12:24 | disposition home or self-care (01) ==
LOC: NCHCN 12:23
PROVIDERS: PCP Nurse Practitioner Family; Visit Provider Nurse Practitioner Family
DX: Z20.822 Contact with and (suspected) exposure to COVID-19 (principal); R05.3 Chronic cough
CPT/HCPCS: U0003

== ENCOUNTER 2021-01-29 03:39 | Outpatient (CLI) | payer MEDICARE, SELFPAY ==
[2021-01-29 12:04] LABS: BUN 18 mg/dL (7-18); CREATININE 0.8 mg/dL (0.55-1.02)
== END 2021-01-29 03:40 | disposition home or self-care (01) ==
LOC: LBO 03:39
PROVIDERS: PCP Nurse Practitioner Family; Visit Provider Surgery Vascular Surgery
DX: I72.2 Aneurysm of renal artery (principal)
CPT/HCPCS: 36415; 84520; 82565

== ENCOUNTER 2021-05-06 02:40 | Outpatient (CLI) | payer MEDICARE, SELFPAY ==
[2021-05-06 07:27] LABS: HGB 14.5 g/dL (11.2-15.7); MCH 31.7 pg (27.0-33.0); MCHC 33.7 % (32.0-36.0); MCV 93.9 fL (80-95); MPV 11.3 fL (8.0-11.0); Platelet Count 174 10^3/uL (130-400); RBC 4.58 10^6/uL (3.93-5.22); RDW 12.6 % (11.7-14.6); RDW-SD 43.6 fL; WBC 4.35 10^3/uL (4.4-10.8)
[2021-05-06 08:04] LABS: Hemoglobin A1C 6.2 % (<5.7)
[2021-05-06 08:52] LABS: ALT 30 U/L (14-59); AST 22 U/L (15-37); Albumin 3.9 g/dL (3.4-5.0); Alkaline Phosphatase 50 U/L (46-116); Bilirubin, Direct 0.2 mg/dL (0.0-0.2); Bilirubin, Total 0.9 mg/dL (0.2-1.0); Total Protein 7.6 g/dL (6.4-8.2)
[2021-05-06 09:19] LABS: Calculated LDL 97 mg/dL (<100); Cholesterol 194 mg/dL (<200); HDL Cholesterol 59 mg/dL (40-60); Triglyceride 191 mg/dL (<150)
== END 2021-05-06 02:41 | disposition home or self-care (01) ==
LOC: LBO 02:40
PROVIDERS: PCP Nurse Practitioner Family; Visit Provider Nurse Practitioner Family
DX: E11.9 Type 2 diabetes mellitus without complications (principal); E78.1 Pure hyperglyceridemia; K76.0 Fatty (change of) liver, not elsewhere classified
CPT/HCPCS: 36415; 80061; 80076; 85027; 83036

== ENCOUNTER 2021-07-05 11:14 | Outpatient (REF) | payer MEDICARE, SELFPAY ==
[2021-07-05 14:19] LABS: Bacteria Few HPF (Negative); Crystals Negative HPF (Negative); Epithelial Cells Few HPF (Negative); Mucus Trace (Negative); Other Cells Few Renal (Negative); RBC 20-50 HPF (0-2); WBC 20-50 HPF (0-5)
[2021-07-05 14:20] LABS: C & S Indicated? C&S Done As Ordered
== END 2021-07-05 11:15 | disposition home or self-care (01) ==
LOC: NCHCN 11:14
PROVIDERS: PCP Nurse Practitioner Family; Visit Provider Nurse Practitioner Family
DX: N39.0 Urinary tract infection, site not specified (principal)
CPT/HCPCS: 87077; 81015; 87086; 87186

== ENCOUNTER 2021-11-05 01:14 | Outpatient (CLI) | payer MEDICARE, SELFPAY ==
[2021-11-05 11:07] LABS: Hemoglobin A1C 5.9 % (<5.7)
[2021-11-05 11:21] LABS: Anion Gap 12.5 mmol/L (3-11); BUN 19 mg/dL (7-18); CO2 26.5 mmol/L (21.0-32.0); CREATININE 0.9 mg/dL (0.55-1.02); Calcium 9.5 mg/dL (8.5-10.1); Chloride 103 mmol/L (98-107); Glucose 138 mg/dL (74-106); Potassium 3.9 mmol/L (3.5-5.1); Sodium 142 mmol/L (136-145)
== END 2021-11-05 01:15 | disposition home or self-care (01) ==
LOC: LBO 01:15
PROVIDERS: PCP Nurse Practitioner Family; Visit Provider Nurse Practitioner Family
DX: I10 Essential (primary) hypertension (principal); E11.9 Type 2 diabetes mellitus without complications
CPT/HCPCS: 36415; 80048; 83036

== ENCOUNTER 2021-12-23 11:50 | Outpatient (CLI) | payer MEDICARE, SELFPAY ==
--- NOTE | 2021-12-23 11:45 | RT.EKG_ITS ---
APPROVED REPORT Exam: Resting ECG Reason for Exam: cad Patient Location: O HR:88 bpm ECG Measurements Heart Rate 88 AXIS [place] 192 P -1 QRSd 86 QRS -66 QT 369 T 70 QTc 447 Conclusion Sinus rhythm...normal P axis, V-rate 50- 99 Probable left atrial enlargement...P >50mS, <-0.10mV V1 Abnormal R-wave progression, early transition...QRS area>0 in V2 LAFB
== END 2021-12-23 11:51 | disposition home or self-care (01) ==
LOC: DI.CARD 11:51
PROVIDERS: PCP Nurse Practitioner Family; Visit Provider Internal Medicine Cardiovascular Disease
DX: I25.10 Atherosclerotic heart disease of native coronary artery without angina pectoris (principal); R94.31 Abnormal electrocardiogram [ECG] [EKG]
CPT/HCPCS: 93010

== ENCOUNTER → 2021-12-23 13:23 | Outpatient (BNVA) | payer MEDICARE, SELFPAY | PROVIDERS: PCP Nurse Practitioner Family; Visit Provider Internal Medicine Cardiovascular Disease | DX: I25.10 Atherosclerotic heart disease of native coronary artery without angina pectoris (principal); I10 Essential (primary) hypertension | CPT/HCPCS: 93005; 99213 ==

== ENCOUNTER 2022-05-05 01:54 | Outpatient (CLI) | payer MEDICARE, SELFPAY ==
[2022-05-05 08:54] LABS: HCT 43.7 % (36.0-46.0); HGB 14.9 g/dL (11.2-15.7); MCH 31.6 pg (27.0-33.0); MCHC 34.1 % (32.0-36.0); MCV 93 fL (80-95); MPV 11.2 fL (8.0-11.0); Platelet Count 158 10^3/uL (130-400); RBC 4.72 10^6/uL (3.93-5.22); RDW 12.4 % (11.7-14.6); RDW-SD 42.5 fL; WBC 4.38 10^3/uL (4.4-10.8)
[2022-05-05 09:20] LABS: Hemoglobin A1C 5.9 % (<5.7)
[2022-05-05 09:49] LABS: ALT 26 U/L (14-59); AST 24 U/L (15-37); Albumin 3.8 g/dL (3.4-5.0); Alkaline Phosphatase 55 U/L (46-116); BUN 18 mg/dL (7-18); Bilirubin, Total 0.9 mg/dL (0.2-1.0); CREATININE 0.9 mg/dL (0.55-1.02); Calcium 9.9 mg/dL (8.5-10.1); Calculated LDL 102 mg/dL (<100); Chloride 98 mmol/L (98-107); Cholesterol 194 mg/dL (<200); Estimated GFR 64.63 (mL/min/1.73m2); Glucose 142 mg/dL (74-106); HDL Cholesterol 58 mg/dL (40-60); Potassium 4.1 mmol/L (3.5-5.1); Sodium 136 mmol/L (136-145); Total Protein 7.8 g/dL (6.4-8.2); Triglyceride 172 mg/dL (<150)
[2022-05-05 10:02] LABS: Bilirubin, Direct 0.2 mg/dL (0.0-0.2)
== END 2022-05-05 01:55 | disposition home or self-care (01) ==
LOC: LBO 01:54
PROVIDERS: PCP Nurse Practitioner Family; Visit Provider Nurse Practitioner Family
DX: E78.1 Pure hyperglyceridemia (principal); E11.9 Type 2 diabetes mellitus without complications; Z85.3 Personal history of malignant neoplasm of breast; I10 Essential (primary) hypertension
CPT/HCPCS: 36415; 80048; 80061; 80076; 85027; 83036

== ENCOUNTER 2022-05-16 03:16 | Outpatient (CLI) | payer MEDICARE, SELFPAY ==
[2022-05-16] MEDS: Methacholine 100 MG VIAL IH (16:53)
[2022-05-16] MEDS: Albuterol HFA 18 GM 200 PUFF INH IH (16:53)
[2022-05-16] MEDS: Inhaler, Assist Device 1 EACH MC (16:53)
--- NOTE | 2022-05-17 12:06 | W.PFT ---
Date of service: 05/16/22 Time of Service: 14:44 Pulmonary Function Test Result Requesting Provider Jen Celeste Indications: Chronic cough Interpretation Spirometry: There is no airflow limitation. There is inspiratory blunting with methacholine administration. There was a 16% decreased in FEV1% with administration of 16mg/mL methacholine. Impression Negative methacholine challenge. There is inspiratory blunting with administration of methacholine. This could represent vocal cord dysfunction in the correct clinical setting. Note: When compared to 11/28/19, again the methacholine challenge remains negative and there is again redemonstration of inspitatory loop blunting with methacholine. Clinical Correlation therefore is recommended.
--- NOTE | 2022-05-17 12:12 | W.PFT ---
Date of service: 05/16/22 Time of Service: 14:44 Pulmonary Function Test Result Requesting Provider Jen Celeste Indications: Chronic cough Interpretation Spirometry: No airflow limitation. Lung Volumes: Normal lung volumes. Diffusion Capacity: Normal diffusion Airway Pressure: Normal airways resistance Impression Normal pulmonary function testing Clinical Correlation therefore is recommended.
== END 2022-05-16 03:17 | disposition home or self-care (01) ==
LOC: RT 03:16
PROVIDERS: PCP Nurse Practitioner Family; Visit Provider Nurse Practitioner Family
DX: R05.3 Chronic cough (principal)
CPT/HCPCS: 94060; 94070; 94726; 94729; 94010; J7674

== ENCOUNTER 2022-06-03 14:25 | Outpatient (REF) | payer MEDICARE, SELFPAY ==
[2022-06-04 11:07] LABS: Campylobacter PCR Negative (Negative); Salmonella PCR Negative (Negative); Shiga Toxin PCR Negative (Negative); Shigella/Enteroinvasive Ecoli Negative (Negative)
== END 2022-06-03 14:26 | disposition home or self-care (01) ==
LOC: LBN 14:25
PROVIDERS: PCP Nurse Practitioner Family; Visit Provider Physician Assistant Medical
DX: R19.7 Diarrhea, unspecified (principal)
CPT/HCPCS: 87329; 87505; 83630

== ENCOUNTER 2022-12-20 17:34 | Outpatient (CLI) | payer MEDICARE, SELFPAY ==
[2022-12-20 22:22] LABS: Rheumatoid Factor 11.5 IU/mL (<12.0)
[2022-12-21 09:10] LABS: Cyclic Citrullinated Peptide <2.5 U/mL (<5.0)
[2022-12-21 15:05] LABS: ANA Interpretation Negative (Negative)
[2022-12-23 16:39] LABS: Alter tenuis/alternata IgG 4.7 mcg/mL (<12.0); Aspergillus fumigatus IgG 33.2 mcg/mL (<46.0); Aureobasidium pullulans IgG <2.0 mcg/mL (<18.0); Laceyella sacchari IgG <2.0 mcg/mL (<25.0); Micropolyspora faeni IgG <2.0 mcg/mL (<5.0); Penicillium Chrysogenum IgG 26.6 mcg/mL (<22.0); Phoma betae IgG 5.8 mcg/mL (<8.0)
== END 2022-12-20 17:35 | disposition home or self-care (01) ==
LOC: LBO 17:34
PROVIDERS: PCP Nurse Practitioner Family; Visit Provider Student in an Organized Health Care Education/Training Program
DX: J84.9 Interstitial pulmonary disease, unspecified (principal); R91.1 Solitary pulmonary nodule; R05.3 Chronic cough; Z87.891 Personal history of nicotine dependence; Z01.89 Encounter for other specified special examinations
CPT/HCPCS: 36415; 86001; 86200; 86038; 86431

== ENCOUNTER → 2022-12-30 00:56 | Outpatient (CLI) | payer MEDICARE, SELFPAY ==
--- NOTE | 2022-12-30 08:00 | DI.CT_ITS ---
Exam(s) CT CHEST HIGH RESOLUTION EXAM: CT CHEST HIGH RESOLUTION CLINICAL HISTORY: assess ILD progression and type,J84.9. TECHNIQUE: Imaging protocol: Axial computed tomography images were obtained and coronal and sagittal reformatted images were created and reviewed. Additional 1 millimeter high-resolution axial images were performed in inspiration and expiration COMPARISON: CT CT CHEST W from 11/13/2019 FINDINGS: Tracheobronchial tree: Patent where visualized. Mediastinum and Rosa: No dominant adenopathy or fluid collection. Pulmonary parenchyma: No consolidation or dominant measurable mass. No visible change in mainly perip heral increased interstitial changes which are greatest at the lung bases. Minimal honeycombing at t he right lung base. Pleura: No effusion or pneumothorax. Heart: The heart is not dilated. Moderate coronary artery calcifications are seen. Twelve al heavil y calcified. Aorta: Thoracic aorta non-dilated. Moderate calcification. Upper abdomen: Unremarkable. Lymph nodes: Within normal limits. Bones:Normal. Soft tissues: Bilateral mastectomy. Hiatal hernia. IMPRESSION: Stable mild interstitial disease, mainly peripheral. Greatest at lung bases. RADIATION DOSE DELIVERED: 531.03mGy.cm Total DLP DATA REPOSITORY: All CT scans at this facility are submitted to the National Radiology Data Registry (NRDR) Dose Index Registry (DIR) with the [employer] (ACR). RADIATION OPTIMIZATION: All CT scans at this facility use at least one of these dose optimization te chniques: automated exposure control; mA and/or kV adjustment per patient size (includes targeted exa ms where dose is matched to clinical indication); or iterative reconstruction.
== END ==
PROVIDERS: PCP Nurse Practitioner Family; Visit Provider Student in an Organized Health Care Education/Training Program
DX: J84.9 Interstitial pulmonary disease, unspecified (principal)
CPT/HCPCS: 71250

== ENCOUNTER → 2023-01-10 10:18 | Outpatient (BNVA) | payer MEDICARE, SELFPAY | PROVIDERS: PCP Nurse Practitioner Family; Referring Provider Nurse Practitioner Family; Visit Provider Internal Medicine Cardiovascular Disease | DX: I25.10 Atherosclerotic heart disease of native coronary artery without angina pectoris (principal); I10 Essential (primary) hypertension | CPT/HCPCS: 99212 ==

== ENCOUNTER → 2023-01-27 13:14 | Outpatient (BNVA) | payer MEDICARE, SELFPAY | PROVIDERS: PCP Nurse Practitioner Family; Referring Provider Nurse Practitioner Family; Visit Provider Student in an Organized Health Care Education/Training Program | DX: J84.9 Interstitial pulmonary disease, unspecified (principal); R91.1 Solitary pulmonary nodule; I10 Essential (primary) hypertension; E11.9 Type 2 diabetes mellitus without complications | CPT/HCPCS: 99214 ==

== ENCOUNTER 2023-02-27 10:46 | Outpatient (CLI) | payer MEDICARE, SELFPAY ==
--- NOTE | 2023-02-27 08:45 | DI.RAD_ITS ---
Exam(s) XR HIP RT COMPLETE AP PELVIS EXAM: XR HIP RT COMPLETE AP PELVIS CLINICAL HISTORY: R hip pain. TECHNIQUE: 2D digital imaging was performed. Two views COMPARISON: CR XR DEXA BONE DENSITY W/WO FRED from 03/13/2019 FINDINGS: BONES: No acute fracture is present. No bony destructive lesion is seen. Enthesophyte at the iliac wings and greater trochanters. JOINTS: No dislocation present. Mild bilateral acetabular spurring. Mild degenerative changes at t he SI joints. SOFT TISSUE: Normal. IMPRESSION: No acute abnormality. Mild degenerative changes. DATA REPOSITORY: RADIATION DOSE DELIVERED:
== END 2023-02-27 10:47 | disposition home or self-care (01) ==
LOC: DIORS 10:46
PROVIDERS: PCP Nurse Practitioner Family; Referring Provider Nurse Practitioner Family; Visit Provider Student in an Organized Health Care Education/Training Program
DX: M25.851 Other specified joint disorders, right hip (principal); M70.61 Trochanteric bursitis, right hip
CPT/HCPCS: 20610; 73502; J1040

== ENCOUNTER → 2023-04-24 10:18 | Outpatient (BNVA) | payer MEDICARE, SELFPAY | PROVIDERS: PCP Nurse Practitioner Family; Referring Provider Nurse Practitioner Family; Visit Provider Student in an Organized Health Care Education/Training Program | DX: M70.61 Trochanteric bursitis, right hip (principal) | CPT/HCPCS: 99213 ==

== ENCOUNTER 2023-05-03 02:34 | Outpatient (CLI) | payer MEDICARE, SELFPAY ==
[2023-05-03 07:29] LABS: HCT 42.9 % (36.0-46.0); HGB 14.8 g/dL (11.2-15.7); MCH 31.3 pg (27.0-33.0); MCHC 34.5 % (32.0-36.0); MCV 91 fL (80-95); MPV 11.7 fL (8.0-11.0); Platelet Count 142 10^3/uL (130-400); RBC 4.73 10^6/uL (3.93-5.22); RDW-SD 43.5 fL; WBC 4.99 10^3/uL (4.4-10.8)
[2023-05-03 07:44] LABS: ALT 24 U/L (14-59); AST 21 U/L (15-37); Albumin 3.5 g/dL (3.4-5.0); Alkaline Phosphatase 51 U/L (46-116); Anion Gap 11.2 mmol/L (3-11); BUN 18 mg/dL (7-18); Bilirubin, Direct 0.2 mg/dL (0.0-0.2); Bilirubin, Total 0.9 mg/dL (0.2-1.0); CO2 25.8 mmol/L (21.0-32.0); CREATININE 0.9 mg/dL (0.55-1.02); Calcium 9.6 mg/dL (8.5-10.1); Chloride 101 mmol/L (98-107); Estimated GFR 64.23 (mL/min/1.73m2); Glucose 150 mg/dL (74-106); Potassium 3.7 mmol/L (3.5-5.1); Sodium 138 mmol/L (136-145); Total Protein 7.8 g/dL (6.4-8.2)
[2023-05-03 08:15] LABS: Hemoglobin A1C 5.7 % (<5.7)
[2023-05-03 13:55] LABS: Calculated LDL 74 mg/dL (<100); Cholesterol 176 mg/dL (<200); HDL Cholesterol 64 mg/dL (40-60); Triglyceride 193 mg/dL (<150)
== END 2023-05-03 02:35 | disposition home or self-care (01) ==
LOC: LBO 02:34
PROVIDERS: PCP Nurse Practitioner Family; Visit Provider Nurse Practitioner Family
DX: E78.1 Pure hyperglyceridemia (principal); E11.9 Type 2 diabetes mellitus without complications; I10 Essential (primary) hypertension
CPT/HCPCS: 36415; 80053; 80061; 85027; 82248; 83036

== ENCOUNTER 2023-05-11 13:11 | Outpatient (CLI) | payer MEDICARE, SELFPAY ==
--- NOTE | 2023-05-11 13:00 | RT.EKG_ITS ---
APPROVED REPORT Exam: Resting ECG Reason for Exam: chest pain Patient Location: O HR:93 bpm ECG Measurements Heart Rate 93 AXIS [place] 182 P 42 QRSd 86 QRS -74 QT 367 T 83 QTc 457 Conclusion Sinus rhythm...normal P axis, V-rate 50- 99 LAFB Early transition SImilar to 2021
== END 2023-05-11 13:12 | disposition home or self-care (01) ==
LOC: DI.CARD 13:13
PROVIDERS: PCP Nurse Practitioner Family; Visit Provider Internal Medicine Cardiovascular Disease
DX: I25.10 Atherosclerotic heart disease of native coronary artery without angina pectoris (principal); R07.9 Chest pain, unspecified
CPT/HCPCS: 93010

== ENCOUNTER → 2023-05-11 13:33 | Outpatient (BNVA) | payer MEDICARE, SELFPAY | PROVIDERS: PCP Nurse Practitioner Family; Referring Provider Nurse Practitioner Family; Visit Provider Internal Medicine Cardiovascular Disease | DX: I25.10 Atherosclerotic heart disease of native coronary artery without angina pectoris (principal); R07.9 Chest pain, unspecified | CPT/HCPCS: 93005; 99213 ==

== ENCOUNTER → 2023-06-20 08:53 | Outpatient (BNVA) | payer MEDICARE, SELFPAY | PROVIDERS: PCP Nurse Practitioner Family; Referring Provider Nurse Practitioner Family; Visit Provider Physician Assistant Surgical | DX: J84.9 Interstitial pulmonary disease, unspecified (principal); R91.1 Solitary pulmonary nodule | CPT/HCPCS: 99214 ==

== ENCOUNTER → 2023-06-27 04:22 | Outpatient (CLI) | payer MEDICARE, SELFPAY ==
--- NOTE | 2023-06-27 | DI.CT_ITS ---
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 TECHNIQUE: Imaging Protocol: Axial computed tomography images with coronal and sagittal reformatted images were created and reviewed CONTRAST MATERIAL: Intravenous: Omnipaque 350 Contrast volume:100 ml Oral: None COMPARISON: CT CT ANGIO ABDOMEN PELVIS from 03/03/2021 FINDINGS: LUNG Bases: Symmetric interstitial fibrosis noted in the visualized lung bases. There are no pleural effusions and no ominous pulmonary nodules in the visualized lung bases. No pericardial effusion. Heart size normal.. ABDOMINAL AORTA: There is moderate circumferential calcification of the abdominal aorta and common il iac arteries. There is no significant aneurysmal dilatation of the aorta and iliac arteries and the common femoral arteries also exhibit normal diameters. Lowermost images reveal patency of the origin of the left SFA but occlusion of the right SFA below the hip. CELIAC ARTERY: Mild plaque at its origin without hemodynamically significant stenosis nor significant post stenotic dilatation. SUPERIOR MESENTERIC ARTERY: No evidence of significant stenosis at its origin. No intraluminal filli ng defects to suggest intraluminal embolus. INFERIOR MESENTERIC ARTERY: Patent LEFT RENAL ARTERY: There is calcified plaque at its origin but without obvious hemodynamically signif icant stenosis. No stenosis nor aneurysm nor fibromuscular dysplasia evident more distally in left r enal artery and the left kidney exhibits normal size. RIGHT RENAL ARTERY: Minimal plaque at its origin without ostial stenosis nor stenosis nor fibromuscul ar dysplasia more distally. However, there is a peripherally calcified aneurysm just medial to the r ight renal hilum which comes off of a renal artery branch vessel at this level. This appears unchang ed in size and configuration from 03/03/2021 outside study, measuring 1.4 cm AP by 1.3 cm wide by 1.3 cm craniocaudal. This appears unchanged in size from the 2020 study. The right kidney exhibits nor mal size There are no renal cysts nor solid renal masses. No calculi. No hydronephrosis. No hydroureter. ABDOMEN: There is no ascites. LIVER: There are no focal hepatic lesions nor dilatation of intrahepatic ducts. GALLBLADDER/BILIARY: Gallbladder is not seen and presumed to be surgically absent. CBD diameter is c ommensurate with post cholecystectomy status. PANCREAS: No evidence of pancreatic mass nor dilatation of the pancreatic duct. SPLEEN: Spleen is not enlarged. There are no intrasplenic lesions. Splenic and portal veins are mcdowell nt. ADRENALS: Calcification in the small nodule in the lateral limb of the left adrenal gland is unchange d from outside study of February 2021. Also unchanged small nodular density at the genu of the right adrenal gland, noncalcified. Probable represents a small unchanged adenoma. LYMPH NODES: There is no retroperitoneal nor para-aortic adenopathy. No obvious mesenteric masses. ABDOMINAL WALL: No evidence of significant anterior abdominal wall hernia. GI: There is no evidence of bowel obstruction, free air, nor abscess. PELVIS: LYMPH NODES: There is no intrapelvic nor inguinal adenopathy. GI: No evidence of appendicitis.No evidence of sigmoid diverticulitis. URINARY BLADDER: No calculi nor masses evident REPRODUCTIVE: Small calcification in the left side the uterus is probably within a small uterine fibr oid and is unchanged from the prior study of 2020. OSSEOUS: No significant osseous lesions. IMPRESSION: 1. 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 2. Other findings as above. RADIATION DOSE DELIVERED: Total DLP DATA REPOSITORY: All CT scans at this facility are submitted to the National Radiology Data Registry (NRDR) Dose Index Registry (DIR) with the [employer] (ACR). RADIATION OPTIMIZATION: All CT scans at this facility use at least one of these dose optimization te chniques: automated exposure control; mA and/or kV adjustment per patient size (includes targeted exa ms where dose is matched to clinical indication); or iterative reconstruction.
[2023-06-27 09:41] LABS: CREATININE 0.9 mg/dL (0.55-1.02); Estimated GFR 63.83 (mL/min/1.73m2)
[2023-06-27] MEDS: Omnipaque 350 MG/ML 500 ML BTL-Imaging package 100 ML IJ (10:00)
[2023-06-27] MEDS: Normal Saline - Diluent 50 ML VIAL IJ (10:00)
== END ==
PROVIDERS: PCP Nurse Practitioner Family; Visit Provider Surgery Vascular Surgery
DX: I72.2 Aneurysm of renal artery (principal); J84.10 Pulmonary fibrosis, unspecified; I10 Essential (primary) hypertension; E11.9 Type 2 diabetes mellitus without complications; Z01.812 Encounter for preprocedural laboratory examination
CPT/HCPCS: 74174; 82565

== ENCOUNTER 2023-09-08 08:23 | Emergency (ER) | payer MEDICARE, SELFPAY ==
[2023-09-08 08:25] VITALS: BP 162/78; PULSE 90; RESP 14; TEMP 37; O2SAT 98
--- NOTE | 2023-09-08 08:30 | DI.RAD_ITS ---
Exam(s) XR RIBS RT W PA LAT CHEST EXAM: XR RIBS RT W PA LAT CHEST CLINICAL HISTORY: fall TECHNIQUE: 2D digital imaging was performed. COMPARISON: CT CT CHEST HIGH RESOLUTION from 12/30/2022 FINDINGS: RIBS 3 VIEWS-right On 1 image there is subtle suggestion of a fracture of the right 9th rib. Nondisplaced. Incidentall y noted are advanced degenerative changes in the ipsilateral right shoulder glenohumeral joint. CXR- 2 VIEWS: No lung contusion or pneumothorax. There is no pleural effusion evident. Heart size normal. Heavy calcification in the mitral valve annulus is noted. IMPRESSION: 1. Probable subtle fracture of the right 9th rib. 2. No acute pulmonary findings. DATA REPOSITORY: RADIATION DOSE DELIVERED:
--- NOTE | 2023-09-08 08:41 | W.ED.GENAD ---
Discharge Plan Disposition Patient Disposition: Home Discharge Details Clinical Impression: Right rib fracture, Muscle spasm, Contusion of face, Fall Primary Care Provider: Jen Manriquez ED Provider: Pau Gomez Home Meds and New Rx's Prescriptions: New lidocaine [Lidoderm] 5 % adhesive patch,medicated 1 patch topical DAILY Qty: 15 0RF Rx Instructions: leave on most painful area for up to 12 hrs methocarbamol 500 mg tablet 500 mg PO TID PRN (Reason: muscle pain) Qty: 20 0RF No Action riboflavin (vitamin B2) 400 mg tablet 400 mg PO DAILY hydrochlorothiazide 25 MG tablet 25 mg PO DAILY lansoprazole [Prevacid SoluTab] 15 MG tablet,disintegrat, delay rel 15 mg PO DAILY PRN fish oil-dha-epa 1 EACH capsule 1 ea PO DAILY cholecalciferol (vitamin D3) 1,000 UNIT tablet 1,000 unit PO DAILY metformin 500 mg tablet 500 mg PO BID lansoprazole [Prevacid] 30 mg capsule,delayed release(DR/EC) 30 mg PO DAILY acetaminophen 325 mg tablet 325 mg PO Q6H PRN lidocaine HCl [Aspercreme (lidocaine HCl)] 4 % liquid roll-on topical DAILY cholecalciferol (vitamin D3) 25 mcg (1,000 unit) capsule 25 mcg PO DAILY CBD Salve See Rx Instructions .ROUTE DIRECTED Rx Instructions: as directed; (DME) lancets [facility] [place] See Rx Instructions .Route Rx Instructions: As directed guaifenesin [Mucus Relief] 400 mg tablet 400 mg PO Q12H PRN loratadine 10 mg tablet 10 mg PO DAILY multivitamin Tablet 1 tab PO DAILY glucosamine HCl 500 mg tablet 500 mg PO DAILY Rx Instructions: administer with a meal ibuprofen [Advil] 200 mg tablet 200 mg PO BID PRN Discharge Instructions Instructions: Rib Fracture or Bruised Rib ED, Muscle Spasm ED Additional Instructions: use medication and patches to help with pain small rib fracture noted on the right can also take motrin and tylenol HPI General Date/Time Provider Initiated Documentation: 09/08/23 08:37. Limitations to Documentation: no limitations. Information obtained by: patient. HPI Narrative: 83-year-old female with past medical history including CAD, diabetes, hypertension presents for evaluation after a fall. Fall happened yesterday. She reports that she tripped over the dog kennel and hit her face recently she feels on the ground. No loss of consciousness. She was able to get herself up off the ground. She does not report headache. She reports significant muscle soreness particularly over the right side of her chest and the right back. She took Tylenol last night, but has not taken any medication this morning. Related Data Home Medications Medication Instructions Recorded Confirmed cholecalciferol (vitamin D3) 25 1,000 unit PO DAILY 02/03/14 05/11/23 mcg (1,000 unit) tablet fish oil-dha-epa 1,200 mg-144 1 ea PO DAILY 02/03/14 05/11/23 mg-216 mg capsule hydrochlorothiazide 25 mg tablet 25 mg PO DAILY 02/03/14 05/11/23 lansoprazole 15 mg delayed 15 mg PO DAILY PRN 02/03/14 05/11/23 release,disintegrating tablet (Prevacid SoluTab) lansoprazole 30 mg capsule,delayed 30 mg PO DAILY 11/20/19 05/11/23 release (Prevacid) metformin 500 mg tablet 500 mg PO BID 11/20/19 05/11/23 CBD Salve See Rx Instructions .Route 01/19/22 05/11/23 DIRECTED acetaminophen 325 mg tablet 325 mg PO Q6H PRN 01/19/22 06/20/23 cholecalciferol (vitamin D3) 25 25 mcg PO DAILY 01/19/22 05/11/23 mcg (1,000 unit) capsule guaifenesin 400 mg tablet (Mucus 400 mg PO Q12H PRN 01/19/22 05/11/23 Relief) lancets 01/19/22 05/11/23 lidocaine HCl 4 % topical liquid ea topical DAILY 01/19/22 05/11/23 roll-on (Aspercreme (lidocaine HCl)) loratadine 10 mg tablet 10 mg PO DAILY 01/19/22 05/11/23 glucosamine HCl 500 mg tablet 500 mg PO DAILY 05/13/22 05/11/23 multivitamin 1 tab PO DAILY 05/13/22 05/11/23 riboflavin (vitamin B2) 400 mg 400 mg PO DAILY 12/20/22 05/11/23 tablet ibuprofen 200 mg tablet (Advil) 200 mg PO BID PRN 01/10/23 05/11/23 lidocaine 5 % topical patch 1 patch topical DAILY #15 ea 09/08/23 (Lidoderm) methocarbamol 500 mg tablet 500 mg PO TID PRN muscle pain #20 09/08/23 tabs Previous Rx's Medication Instructions Recorded lidocaine 5 % topical patch 1 patch topical DAILY #15 ea 09/08/23 (Lidoderm) methocarbamol 500 mg tablet 500 mg PO TID PRN muscle pain #20 09/08/23 tabs Allergies Allergy/AdvReac Type Severity Reaction Status Date / Time lisinopril AdvReac Unknown cough Verified 09/08/23 08:30 red yeast rice AdvReac Unknown muscle Verified 09/08/23 08:30 cramping adhesive AdvReac rash at Verified 09/08/23 08:30 site aspirin AdvReac excessive Verified 09/08/23 08:30 bruising codeine AdvReac nausea Verified 09/08/23 08:30 meperidine HCl [From Demerol] AdvReac Not Verified 09/08/23 08:30 effective for pain niacin AdvReac parasthesia Verified 09/08/23 08:30 s General Stated Complaint: Fall/Non TraumaCriteria CORRINA: 4 Exam Narrative Exam Narrative: Review of Systems: All systems reviewed & are unremarkable except as noted in HPI and below Well-developed, no acute distress small bruising over right upper eye lid No significant periorbital swelling or tenderness, extraocular movements intact, no signs of entrapment, no nasal septal hematoma, no malocclusion, no facial instability or crepitus C-spine midline, nontender PERRL, normal conjunctiva RRR, no murmur Chest wall with right lateral tenderness, status postmastectomy Unlabored respiratory effort, clear bilaterally Nondistended abdomen Extremities w/o deformity, no cyanosis, no edema Midline back without tenderness, step-off or deformity She has some muscle spasm right paraspinal back No rashes or lesions. no focal neurologic deficits Appropriate mood and affect Course Vital Signs Vital signs: Vital Signs Temperature 37.0 C 09/08/23 08:25 Pulse 90 09/08/23 08:25 Respiratory Rate 14 09/08/23 08:25 Blood Pressure 162/78 H 09/08/23 08:25 Pulse Oximetry 98 09/08/23 08:25 Temperature 37.0 C 09/08/23 08:25 Temperature Source Oral 09/08/23 08:25 Pulse 90 09/08/23 08:25 Respiratory Rate 14 09/08/23 08:25 Respiratory Effort Normal, Non-Labored 09/08/23 08:34 Blood Pressure 162/78 H 09/08/23 08:25 Blood Pressure Position Sitting 09/08/23 08:25 Pulse Oximetry 98 09/08/23 08:25 Oxygen Delivery Method Room Air 09/08/23 08:25 Oxygen Flow Rate 0 09/08/23 08:25 Pain Level 2 09/08/23 08:25 Medical Decision Making Emergent evaluation of after fall. Fall occurred yesterday. Patient is not on any blood thinners or other anticoagulants. She did not lose consciousness and has no symptoms concerning for postconcussive syndrome or other intracranial process. I do not feel head imaging is indicated at this time. She has some mild facial trauma, but no significant signs concerning for facial fracture. Fall very clearly seems to be mechanical and does not have any features concerning for syncope or other cardiac event that caused the fall. Given her right-sided chest wall tenderness, x-ray imaging was obtained, this is concerning for possible nondisplaced single rib fracture. She was treated with lidocaine, Tylenol and Robaxin in the emergency department will be discharged with prescriptions for lidocaine patch and Robaxin. Medical Records Medical records reviewed: Yes I reviewed the patient's medical records. Quality:SDOH Health Related Social Needs: No Data to Display PFSH All Active Problems Fall (Acute) Contusion of face (Acute) Muscle spasm (Acute) Right rib fracture (Acute) Femoral acetabular impingement (Acute) RIGHT Pulmonary nodule (Acute) Interstitial lung disease (Acute) Vocal cord dysfunction (Acute) FH: hemochromatosis (Acute) Padilla's neuroma (Acute) Diverticulosis (Acute) Colonic polyp (Acute) Lymphedema of left arm (Acute) Seborrheic keratosis (Acute) Benign nevus (Acute) Dermatofibroma (Acute) Tinnitus, bilateral (Acute) Abnormal findings on diagnostic imaging of lung (Acute) Iliotibial band syndrome (Acute) Vertigo (Acute) Fatty liver (Acute) Lymphedema (Acute) Gilbert syndrome (Acute) Hypertensive disorder (Chronic) Hypertriglyceridemia (Acute) GERD (gastroesophageal reflux disease) (Chronic) Type 2 diabetes mellitus (Acute) Dizziness (Acute) Lower back pain (Acute) UTI (urinary tract infection) (Acute) Dysuria (Acute) Eustachian tube dysfunction (Acute) Chronic cough (Acute) Trochanteric bursitis, right hip (Acute 01/04/20) Injection: 02/27/2023 Essential hypertension (Acute) Coronary artery disease (Chronic) Chest pain (Acute) Medical History Aneurysm of right renal artery HX: breast cancer Chest pain at rest Surgical History History of tubal ligation Hx of cholecystectomy History of prophylactic mastectomy of left breast Hx of appendectomy H/O mastectomy Social History Smoking/Tobacco Use Status: Former Tobacco Use Quit Date: 12/25/00 Pack-years: 40 Second Hand Exposure: No Smoking risk assessment performed?: Yes Alcohol Intake: never Drug use: Never Housing: house [employer] Have you Been Recently Intoxicated or Drunk Within the Last 30 days?: No Have you Ever Experienced Previous Episodes of Alcohol Withdrawal?: No Have you ever Experienced Withdrawal Seizures?: No Have you ever Experienced Delirium Tremens(DT)s?: No Have you ever Experienced Blackouts?: No Have you ever Combined Alcohol with other Downers within the last 90 days?: No Have you ever Combined Alcohol with any other Substance of Abuse during the last 90 days?: No Result: 0
[2023-09-08] MEDS: Methocarbamol 500 MG TAB 1000 MG PO (08:46)
[2023-09-08] MEDS: Acetaminophen 500 MG TAB 1000 MG PO (08:46)
[2023-09-08] MEDS: Lidocaine 5% Patch 1 PATCH TP (08:47)
[2023-09-08 09:39] VITALS: BP 154/61; PULSE 84; RESP 18; O2SAT 97
== END 2023-09-08 09:41 | disposition home or self-care (01) ==
PROVIDERS: Emergency Provider Emergency Medicine; PCP Nurse Practitioner Family
DX: S22.31XA Fracture of one rib, right side, initial encounter for closed fracture (principal); S00.83XA Contusion of other part of head, initial encounter; M62.838 Other muscle spasm; I10 Essential (primary) hypertension; W19.XXXA Unspecified fall, initial encounter; R07.89 Other chest pain
CPT/HCPCS: 99283; 71046; 71100

== ENCOUNTER 2023-10-11 14:17 | Emergency (ER) | payer MEDICARE, SELFPAY ==
[2023-10-11] VITALS (15 sets, daily range): BP systolic 113–123; BP diastolic 50–53; PULSE 82–93; RESP 18–29; TEMP 35.8; O2SAT 92–98
--- NOTE | 2023-10-11 14:00 | RT.EKG_ITS ---
APPROVED REPORT Exam: Resting ECG Reason for Exam: Chest Pain Patient Location: E HR:96 bpm ECG Measurements Heart Rate 96 AXIS [place] 191 P 72 QRSd 90 QRS -68 QT 369 T 80 QTc 467 Conclusion Sinus rhythm at a rate of [address] changes similar to old EKG from 05/11/23, 12/23/21.
--- NOTE | 2023-10-11 14:42 | ED.GENADUL_ITS ---
Discharge Plan Disposition Patient Disposition: Home Condition: Stable Discharge Details Clinical Impression: Nausea & vomiting Primary Care Provider: Jen Manriquez ED Provider: Noreen Robertson Home Meds and New Rx's Prescriptions: New meclizine [Motion Sickness (meclizine)] 25 mg tablet 25 mg PO BID PRNQty: 10 0RF No Action riboflavin (vitamin B2) 400 mg tablet 400 mg PO DAILY hydrochlorothiazide 25 MG tablet 25 mg PO DAILY lansoprazole [Prevacid SoluTab] 15 MG tablet,disintegrat, delay rel 15 mg PO DAILY PRN fish oil-dha-epa 1 EACH capsule 1 ea PO DAILY cholecalciferol (vitamin D3) 1,000 UNIT tablet 1,000 unit PO DAILY metformin 500 mg tablet 500 mg PO BID lansoprazole [Prevacid] 30 mg capsule,delayed release(DR/EC) 30 mg PO DAILY acetaminophen 325 mg tablet 325 mg PO Q6H PRN lidocaine HCl [Aspercreme (lidocaine HCl)] 4 % liquid roll-on 1 ea topical DAILY cholecalciferol (vitamin D3) 25 mcg (1,000 unit) capsule 25 mcg PO DAILY CBD Salve See Rx Instructions .ROUTE DIRECTED Rx Instructions: as directed; (DME) lancets Misc See Rx Instructions .Route Rx Instructions: As directed guaifenesin [Mucus Relief] 400 mg tablet 400 mg PO Q12H PRN loratadine 10 mg tablet 10 mg PO DAILY multivitamin Tablet 1 tab PO DAILY glucosamine HCl 500 mg tablet 500 mg PO DAILY Rx Instructions: administer with a meal ibuprofen [Advil] 200 mg tablet 200 mg PO BID PRN lidocaine [Lidoderm] 5 % adhesive patch,medicated 1 patch topical DAILY Qty: 15 0RF Rx Instructions: leave on most painful area for up to 12 hrs Discharge Instructions Instructions: Motion sickness, Nausea and Vomiting, Adult ED Additional Instructions: Please follow-up with your primary care doctor. Take the prescribed medication as needed. In the meantime if you do get worse or develop any new or concerning symptoms please return to the emergency department immediately. HPI General Date/Time Provider Initiated Documentation: 10/11/23 14:44 . HPI Narrative: The patient is an 83-year-old female with history of hypertension, hyperlipidemia, Gilbert's syndrome, diabetes who comes to the emergency department for nausea, vomiting, weakness. The patient reports she has been feeling off since she had fillings placed at the dental office around 1:00 yesterday afternoon. Reports the dentist injected lidocaine in her mouth after the dentist applied some gel. Reports her mouth feels fine. Reports that she started feeling off after, nauseous worse when she moves around. Reports she feels woozy. Reports it is not a room spinning sensation and it is not a lightheaded sensation either but this is certainly making her feel nauseous. Reports she is vomited about 4 times. Denies diarrhea with this. Denies eating unusual food or any known sick contacts. Denies any fevers or chills. Denies any chest pain or shortness of breath. Denies abdominal pain. Denies urinary symptoms. Reports she was able to eat breakfast and lunch today without any issues. Reports she has been feeling off to finally decided to call 911. Related Data Home Medications ?Medication ?Instructions ?Recorded ?Confirmed cholecalciferol (vitamin D3) 25 1,000 unit PO DAILY 02/03/14 10/11/23 mcg (1,000 unit) tablet fish oil-dha-epa 1,200 mg-144 1 ea PO DAILY 02/03/14 10/11/23 mg-216 mg capsule hydrochlorothiazide 25 mg tablet 25 mg PO DAILY 02/03/14 10/11/23 lansoprazole 15 mg delayed 15 mg PO DAILY PRN 02/03/14 10/11/23 release,disintegrating tablet (Prevacid SoluTab) lansoprazole 30 mg capsule,delayed 30 mg PO DAILY 11/20/19 10/11/23 release (Prevacid) metformin 500 mg tablet 500 mg PO BID 11/20/19 10/11/23 ROSARIO Salazar See Rx Instructions .Route 01/19/22 10/11/23 DIRECTED acetaminophen 325 mg tablet 325 mg PO Q6H PRN 01/19/22 10/11/23 cholecalciferol (vitamin D3) 25 25 mcg PO DAILY 01/19/22 10/11/23 mcg (1,000 unit) capsule guaifenesin 400 mg tablet (Mucus 400 mg PO Q12H PRN 01/19/22 10/11/23 Relief) lancets 01/19/22 10/11/23 lidocaine HCl 4 % topical liquid 1 ea topical DAILY 01/19/22 10/11/23 roll-on (Aspercreme (lidocaine HCl)) loratadine 10 mg tablet 10 mg PO DAILY 01/19/22 10/11/23 glucosamine HCl 500 mg tablet 500 mg PO DAILY 05/13/22 10/11/23 multivitamin 1 tab PO DAILY 05/13/22 10/11/23 riboflavin (vitamin B2) 400 mg 400 mg PO DAILY 12/20/22 10/11/23 tablet ibuprofen 200 mg tablet (Advil) 200 mg PO BID PRN 01/10/23 10/11/23 lidocaine 5 % topical patch 1 patch topical DAILY #15 ea 09/08/23 10/11/23 (Lidoderm) meclizine 25 mg tablet (Motion 25 mg PO BID PRN #10 tabs 10/11/23 Sickness (meclizine)) Previous Rx's ?Medication ?Instructions ?Recorded lidocaine 5 % topical patch 1 patch topical DAILY #15 ea 09/08/23 (Lidoderm) meclizine 25 mg tablet (Motion 25 mg PO BID PRN #10 tabs 10/11/23 Sickness (meclizine)) Allergies Allergy/AdvReac Type Severity Reaction Status Date / Time lisinopril AdvReac Unknown cough Verified 10/11/23 14:27 red yeast rice AdvReac Unknown muscle Verified 10/11/23 14:27 cramping adhesive AdvReac rash at Verified 09/08/23 08:30 site aspirin AdvReac excessive Verified 10/11/23 14:27 bruising codeine AdvReac nausea Verified 10/11/23 14:27 meperidine HCl (From Demerol) AdvReac Not Verified 10/11/23 14:27 effective for pain niacin AdvReac parasthesia Verified 10/11/23 14:27 s General Stated Complaint: Nausea/Vomit/Diar CORRINA: 3 Review of Systems Narrative: Review of systems are negative except as mentioned. Exam Narrative Exam Narrative: The patient is in no acute distress. Her pupils are round, equal and reactive. Patient has right beating horizontal nystagmus. Oral mucosal membranes are moist. Heart is regular in rate and rhythm. Lungs are clear to auscultation. Patient has equal radial pulses. Skin is warm and dry. Patient is alert, oriented x 3. Patient has equal strength and sensation to bilateral upper and lower extremities. Her speech is clear. She has no facial asymmetry. Cranial nerves II to XII motor function are intact and equal. No pronator drift noted. No limb ataxia is appreciated. NIH stroke scale score is 0 at 1440. No truncal ataxia is appreciated. HINTS testing is unremarkable. No lower extremity edema is appreciated. Course Vital Signs Vital signs: Vital Signs Temperature 35.8 C L 10/11/23 14:19 Pulse 93 H 10/11/23 14:19 Respiratory Rate 18 10/11/23 14:19 Pulse Oximetry 98 10/11/23 14:19 Temperature 35.8 C L 10/11/23 14:19 Pulse 93 H 10/11/23 14:19 Respiratory Rate 18 10/11/23 14:19 Pulse Oximetry 98 10/11/23 14:19 Medical Decision Making The patient has no focal deficit on exam which is reassuring. She arrives hemodynamically stable as well. She had an EKG done upon arrival which had some nonspecific changes however they appear to be chronic in comparison to prior EKGs. Nevertheless I am checking her troponin. Checking her blood work also. The patient declines nausea medication now. I talked her about trying medication to help with her symptoms in the form of Antivert and she is willing to give this a try. The patient's blood work is back and this is unremarkable including normal CBC, CMP, lipase and troponin. Patient reports she feels improved after Antivert and fluids. I told her I still would like to get a urine specimen and she reports that she is ready to give a urine specimen. This will also be her ambulation trial when she goes to bathroom to give a sample. The patient was able to ambulate without any issues but was unable to provide a urine specimen. She will get something to eat and drink now and will try again for a urine specimen after. The patient was able to pass her PO challenge. The patient is voicing concern regarding not wanting to wait longer. Reports she has no urinary symptoms whatsoever. I told her that it is frequent that urine infections can present atypically which is why I often recommend checking this on patient's in particular older female patients however since she would still prefer going home instead since she feels back to baseline. A prescription for more Antivert is sent to her preferred pharmacy. She is asked to follow-up with her primary care doctor regardless and urged to return to the emergency department with any worsening symptoms or any other concerns. ECG Data Attestation: I personally reviewed and interpreted this ECG (s) as follows: (Sinus rhythm at a rate of [address] changes. I compared this to her old EKG from May 11, 2023 and November 26, 2019 and there has been no significant interval change.) Quality:SDND Health Related Social Needs: No Data to Display PFSH All Active Problems (Updated 10/11/23 @ 15:29 by Noreen Robertson DO) Nausea & vomiting (Acute) Femoral acetabular impingement (Acute) RIGHT Pulmonary nodule (Acute) Interstitial lung disease (Acute) Vocal cord dysfunction (Acute) FH: hemochromatosis (Acute) Padilla's neuroma (Acute) Diverticulosis (Acute) Colonic polyp (Acute) Lymphedema of left arm (Acute) Seborrheic keratosis (Acute) Benign nevus (Acute) Dermatofibroma (Acute) Tinnitus, bilateral (Acute) Abnormal findings on diagnostic imaging of lung (Acute) Iliotibial band syndrome (Acute) Vertigo (Acute) Fatty liver (Acute) Lymphedema (Acute) Gilbert syndrome (Acute) Hypertensive disorder (Chronic) Hypertriglyceridemia (Acute) GERD (gastroesophageal reflux disease) (Chronic) Type 2 diabetes mellitus (Acute) Dizziness (Acute) Lower back pain (Acute) UTI (urinary tract infection) (Acute) Dysuria (Acute) Eustachian tube dysfunction (Acute) Chronic cough (Acute) Trochanteric bursitis, right hip (Acute 01/04/20) Injection: 02/27/2023 Essential hypertension (Acute) Coronary artery disease (Chronic) Chest pain (Acute) Medical History Aneurysm of right renal artery HX: breast cancer Chest pain at rest Surgical History History of tubal ligation Hx of cholecystectomy History of prophylactic mastectomy of left breast Hx of appendectomy H/O mastectomy Social History Smoking/Tobacco Use Status: Former Tobacco Use Quit Date: 12/25/00 Pack-years: 40 Second Hand Exposure: No Smoking risk assessment performed?: Yes Alcohol Intake: never Drug use: Never Substance use type: does not use Housing: house Do you feel safe at home: Yes Do you feel safe in your relationship?: Yes
[2023-10-11 14:55] LABS: Abs Immature Grans 0.02 10^3/uL (0.0-0.06); Absolute Basophil Count 0.04 10^3/uL (0.0-0.2); Absolute Eosinophil Count 0.01 10^3/uL (0.0-0.7); Absolute Lymphocyte Count 1.06 10^3/uL (1.2-3.4); Absolute Monocyte Count 0.62 10^3/uL (0.1-0.8); Absolute Neutrophil Count 4.08 10^3/uL (1.2-6.7); Basophils % 0.7 %; Eosinophils % 0.2 %; HCT 40.5 % (36.0-46.0); HGB 13.7 g/dL (11.2-15.7); Immature Grans % 0.3 %; Lymphocytes % 18.2 %; MCH 31.9 pg (27.0-33.0); MCHC 33.8 % (32.0-36.0); MCV 94 fL (80-95); MPV 10.6 fL (8.0-11.0); Monocytes % 10.6 %; Platelet Count 149 10^3/uL (130-400); RDW 13.1 % (11.7-14.6); RDW-SD 44.9 fL; WBC 5.83 10^3/uL (4.4-10.8)
[2023-10-11] MEDS: Meclizine 25 MG TAB PO (15:03)
[2023-10-11] MEDS: Normal Saline 250 ML 500 ML IV (15:07)
[2023-10-11 15:13] LABS: ALT 28 U/L (14-59); AST 26 U/L (15-37); Albumin 3.5 g/dL (3.4-5.0); Alkaline Phosphatase 65 U/L (46-116); Anion Gap 9.4 mmol/L (3-11); BUN 18 mg/dL (7-18); Bilirubin, Total 0.78 mg/dL (0.2-1.0); CO2 28.6 mmol/L (21.0-32.0); CREATININE 1.1 mg/dL (0.55-1.02); Calcium 9.5 mg/dL (8.5-10.1); Chloride 98 mmol/L (98-107); Estimated GFR 50.17 (mL/min/1.73m2); Glucose 145 mg/dL (74-106); Lipase 51 U/L (16-77); Potassium 3.7 mmol/L (3.5-5.1); Sodium 136 mmol/L (136-145); Total Protein 7.9 g/dL (6.4-8.2); Troponin I < 50 ng/L (< or =60)
[2023-10-12 14:46] LABS: Vitamin D 25 Total 57.9 ng/mL (30-100)
--- NOTE | 2023-10-14 09:59 | NUR.NOTE ---
patient's daughter called stating her mother is not feeling any better with home tx after being seen here 3 days go. advised that we are here and happy to re-evaluate her if they are concerned. Nursing Note:
== END 2023-10-11 16:27 | disposition home or self-care (01) ==
PROVIDERS: Nurse Practitioner Family; Emergency Provider Emergency Medicine; PCP Nurse Practitioner Family
DX: R11.2 Nausea with vomiting, unspecified (principal); R53.1 Weakness
CPT/HCPCS: 80053; 82306; 83690; 93005; 96360; 99284; 84484; 85025; 93010; 99283

== ENCOUNTER 2023-10-14 10:27 | Emergency (ER) | payer MEDICARE, SELFPAY ==
[2023-10-14] VITALS (30 sets, daily range): BP systolic 117–175; BP diastolic 48–82; PULSE 63–83; RESP 11–27; TEMP 36.4–36.8; O2SAT 92–99
--- NOTE | 2023-10-14 10:49 | ED.GENADUL_ITS ---
Discharge Plan Disposition Patient Disposition: Home Discharge Details Clinical Impression: COVID-19, Nausea vomiting and diarrhea Primary Care Provider: Jen Manriquez ED Provider: Isabelle Jauregui Home Meds and New Rx's Prescriptions: New prochlorperazine maleate [Compazine] 5 mg tablet 5 mg PO BID PRNQty: 10 0RF magnesium 250 mg tablet 250 mg PO DAILY Qty: 10 0RF Continued riboflavin (vitamin B2) 400 mg tablet 400 mg PO DAILY hydrochlorothiazide 25 MG tablet 25 mg PO DAILY lansoprazole [Prevacid SoluTab] 15 MG tablet,disintegrat, delay rel 15 mg PO DAILY PRN fish oil-dha-epa 1 EACH capsule 1 ea PO DAILY cholecalciferol (vitamin D3) 1,000 UNIT tablet 1,000 unit PO DAILY metformin 500 mg tablet 500 mg PO BID lansoprazole [Prevacid] 30 mg capsule,delayed release(DR/EC) 30 mg PO DAILY acetaminophen 325 mg tablet 325 mg PO Q6H PRN lidocaine HCl [Aspercreme (lidocaine HCl)] 4 % liquid roll-on 1 ea topical DAILY cholecalciferol (vitamin D3) 25 mcg (1,000 unit) capsule 25 mcg PO DAILY CBD Salve See Rx Instructions .ROUTE DIRECTED Rx Instructions: as directed; (DME) lancets Misc See Rx Instructions .Route Rx Instructions: As directed guaifenesin [Mucus Relief] 400 mg tablet 400 mg PO Q12H PRN loratadine 10 mg tablet 10 mg PO DAILY multivitamin Tablet 1 tab PO DAILY glucosamine HCl 500 mg tablet 500 mg PO DAILY Rx Instructions: administer with a meal ibuprofen [Advil] 200 mg tablet 200 mg PO BID PRN lidocaine [Lidoderm] 5 % adhesive patch,medicated 1 patch topical DAILY Qty: 15 0RF Rx Instructions: leave on most painful area for up to 12 hrs meclizine [Motion Sickness (meclizine)] 25 mg tablet 25 mg PO BID PRNQty: 10 0RF Discharge Instructions Instructions: COVID-19 ED Additional Instructions: Take Compazine as needed for nausea and vomiting Take the magnesium daily Popsicles, sugar-free Gatorade, at least eight 8 ounce glasses of water daily Use caution when going from sitting to standing Return earlier should he have new or worsening complaints Recheck with a primary care physician next week You have a nodule on the CT of your chest, this should be rechecked in the next 3 months by your doctor Referrals: Jen Manriquez [Primary Care Provider] - Discharge Data Discharge Date/Time-TO BE ENTERED AT DEPARTURE: 10/14/23 15:27 HPI General Date/Time Provider Initiated Documentation: 10/14/23 10:28 . HPI Narrative: This 83-year-old female presents with nausea, vomiting, diarrhea presents for COVID-19 diagnosis on Monday. states that he mentioned subjective as well just prior to arrival. States she had a syncopal event which lasted approximately 30 seconds. Denies any fever or chills. Patient states also has been diagnosed with COVID-19. States she has been ambulatory and eating and drinking well since the event happened early this morning. Today symptomatically improved. Denies any additional complaints at this time. Denies prior history of dysrhythmia. Denies any falls associated with the event. Event was witnessed by no seizure-like activity. Related Data Home Medications ?Medication ?Instructions ?Recorded ?Confirmed cholecalciferol (vitamin D3) 25 1,000 unit PO DAILY 02/03/14 10/14/23 mcg (1,000 unit) tablet fish oil-dha-epa 1,200 mg-144 1 ea PO DAILY 02/03/14 10/14/23 mg-216 mg capsule hydrochlorothiazide 25 mg tablet 25 mg PO DAILY 02/03/14 10/14/23 lansoprazole 15 mg delayed 15 mg PO DAILY PRN 02/03/14 10/14/23 release,disintegrating tablet (Prevacid SoluTab) lansoprazole 30 mg capsule,delayed 30 mg PO DAILY 11/20/19 10/14/23 release (Prevacid) metformin 500 mg tablet 500 mg PO BID 11/20/19 10/14/23 CBD Salve See Rx Instructions .Route 01/19/22 10/14/23 DIRECTED acetaminophen 325 mg tablet 325 mg PO Q6H PRN 01/19/22 10/14/23 cholecalciferol (vitamin D3) 25 25 mcg PO DAILY 01/19/22 10/14/23 mcg (1,000 unit) capsule guaifenesin 400 mg tablet (Mucus 400 mg PO Q12H PRN 01/19/22 10/14/23 Relief) lancets 01/19/22 10/14/23 lidocaine HCl 4 % topical liquid 1 ea topical DAILY 01/19/22 10/14/23 roll-on (Aspercreme (lidocaine HCl)) loratadine 10 mg tablet 10 mg PO DAILY 01/19/22 10/14/23 glucosamine HCl 500 mg tablet 500 mg PO DAILY 05/13/22 10/14/23 multivitamin 1 tab PO DAILY 05/13/22 10/14/23 riboflavin (vitamin B2) 400 mg 400 mg PO DAILY 12/20/22 10/14/23 tablet ibuprofen 200 mg tablet (Advil) 200 mg PO BID PRN 01/10/23 10/14/23 lidocaine 5 % topical patch 1 patch topical DAILY #15 ea 09/08/23 10/14/23 (Lidoderm) meclizine 25 mg tablet (Motion 25 mg PO BID PRN #10 tabs 10/11/23 10/14/23 Sickness (meclizine)) magnesium 250 mg tablet 250 mg PO DAILY #10 tabs 10/14/23 prochlorperazine maleate 5 mg 5 mg PO BID PRN #10 tabs 10/14/23 tablet (Compazine) Previous Rx's ?Medication ?Instructions ?Recorded lidocaine 5 % topical patch 1 patch topical DAILY #15 ea 09/08/23 (Lidoderm) meclizine 25 mg tablet (Motion 25 mg PO BID PRN #10 tabs 10/11/23 Sickness (meclizine)) magnesium 250 mg tablet 250 mg PO DAILY #10 tabs 10/14/23 prochlorperazine maleate 5 mg 5 mg PO BID PRN #10 tabs 10/14/23 tablet (Compazine) Allergies Allergy/AdvReac Type Severity Reaction Status Date / Time lisinopril AdvReac Unknown cough Verified 10/14/23 10:42 red yeast rice AdvReac Unknown muscle Verified 10/14/23 10:42 cramping adhesive AdvReac rash at Verified 10/14/23 10:42 site aspirin AdvReac excessive Verified 10/14/23 10:42 bruising codeine AdvReac nausea Verified 10/14/23 10:42 meperidine HCl (From Demerol) AdvReac Not Verified 10/14/23 10:42 effective for pain niacin AdvReac parasthesia Verified 10/14/23 10:42 s General Stated Complaint: [facility] CORRINA: 3 Exam Narrative Exam Narrative: Alert and oriented, no obvious acute distress, moist mucous membranes, alert and oriented, nonfocal neurological exam, pupils equal round reactive to light and accommodation, lungs clear to auscultation, cardiac rate rhythm regular, no murmurs or rubs no abdominal tenderness Alert and Oriented x 4 distal pulses intact all 4 extremities Course Vital Signs Vital signs: Vital Signs Temperature 36.8 C 10/14/23 10:33 Pulse 76 10/14/23 10:33 Respiratory Rate 18 10/14/23 10:33 Blood Pressure 132/51 L 10/14/23 10:33 Pulse Oximetry 97 10/14/23 10:33 Temperature 36.8 C 10/14/23 10:33 Temperature Source Temporal Artery Scan 10/14/23 10:33 Pulse 76 10/14/23 10:33 Respiratory Rate 18 10/14/23 10:33 Blood Pressure 132/51 L 10/14/23 10:33 Blood Pressure Position Supine 10/14/23 10:33 Pulse Oximetry 97 10/14/23 10:33 Oxygen Delivery Method Room Air 10/14/23 10:33 Oxygen Flow Rate 0 10/14/23 10:33 Pain Level 0 10/14/23 10:33 Medical Decision Making Patient with recent COVID-19 diagnosis presenting with nausea vomiting and diarrhea. Started Paxlovid yesterday secondary to age and comorbidities. Does not see a correlation between the Paxlovid and her nausea vomiting and diarrhea. Labs were ordered which did not show significant acute abnormality aside from hyperglycemia and hypomagnesemia. She was given fluids and her magnesium was supplemented with 1 g of IV mag. EKG does not show evidence of acute abnormality. [place] syncope places patient at low risk. Observed on telemetry for 4 hours without acute abnormality, ambulatory steady gait without orthostatic hypotension noted. Creatinine 1.1 baseline for patient, glucose 203. Patient encouraged to continue hydrating at home and to return earlier with new or worsening complaints. No evidence of diabetic ketoacidosis Quality:SDOH Health Related Social Needs: No Data to Display PFSH All Active Problems (Updated 10/14/23 @ 15:10 by NATHALY Lindsay) Nausea vomiting and diarrhea (Acute) COVID-19 (Acute) Nausea & vomiting (Acute) Femoral acetabular impingement (Acute) RIGHT Pulmonary nodule (Acute) Interstitial lung disease (Acute) Vocal cord dysfunction (Acute) FH: hemochromatosis (Acute) Padilla's neuroma (Acute) Diverticulosis (Acute) Colonic polyp (Acute) Lymphedema of left arm (Acute) Seborrheic keratosis (Acute) Benign nevus (Acute) Dermatofibroma (Acute) Tinnitus, bilateral (Acute) Abnormal findings on diagnostic imaging of lung (Acute) Iliotibial band syndrome (Acute) Vertigo (Acute) Fatty liver (Acute) Lymphedema (Acute) Gilbert syndrome (Acute) Hypertensive disorder (Chronic) Hypertriglyceridemia (Acute) GERD (gastroesophageal reflux disease) (Chronic) Type 2 diabetes mellitus (Acute) Dizziness (Acute) Lower back pain (Acute) UTI (urinary tract infection) (Acute) Dysuria (Acute) Eustachian tube dysfunction (Acute) Chronic cough (Acute) Trochanteric bursitis, right hip (Acute 01/04/20) Injection: 02/27/2023 Essential hypertension (Acute) Coronary artery disease (Chronic) Chest pain (Acute) Medical History Aneurysm of right renal artery HX: breast cancer Chest pain at rest Surgical History History of tubal ligation Hx of cholecystectomy History of prophylactic mastectomy of left breast Hx of appendectomy H/O mastectomy Social History Smoking/Tobacco Use Status: Former Tobacco Use Quit Date: 12/25/00 Pack-years: 40 Second Hand Exposure: No Smoking risk assessment performed?: Yes Alcohol Intake: never Drug use: Never Substance use type: does not use Housing: house Do you feel safe at home: Yes Do you feel safe in your relationship?: Yes
[2023-10-14] MEDS: Normal Saline 1,000 ML 1000 ML IV (11:17)
[2023-10-14] MEDS: Prochlorperazine 10 MG/2 ML VIAL 5 MG IVP (11:17)
[2023-10-14 11:20] LABS: BE (Venous) 2 mmol/L (-2-3); HCO3 (Venous) 27 mmol/L (23-28); O2 Sat (Venous) 97 %; TCO2 (Venous) 24 mmol/L (24-29); pCO2 (Venous) 41 mmHg (41-51); pH (Venous) 7.43 (7.31-7.41); pO2 (Venous) 75 mmHg
[2023-10-14 11:22] LABS: Abs Immature Grans 0.02 10^3/uL (0.0-0.06); Absolute Basophil Count 0.02 10^3/uL (0.0-0.2); Absolute Lymphocyte Count 1.14 10^3/uL (1.2-3.4); Absolute Monocyte Count 0.41 10^3/uL (0.1-0.8); Absolute Neutrophil Count 4.98 10^3/uL (1.2-6.7); Basophils % 0.3 %; HCT 37.3 % (36.0-46.0); HGB 12.9 g/dL (11.2-15.7); Immature Grans % 0.3 %; Lymphocytes % 17.4 %; MCH 31.8 pg (27.0-33.0); MCHC 34.6 % (32.0-36.0); MCV 92 fL (80-95); MPV 10.8 fL (8.0-11.0); Monocytes % 6.2 %; Neutrophils % 75.8 %; Platelet Count 145 10^3/uL (130-400); RBC 4.06 10^6/uL (3.93-5.22); RDW 12.8 % (11.7-14.6); RDW-SD 43.4 fL; WBC 6.57 10^3/uL (4.4-10.8)
[2023-10-14 11:40] LABS: ALT 29 U/L (14-59); AST 27 U/L (15-37); Alkaline Phosphatase 60 U/L (46-116); Anion Gap 9.7 mmol/L (3-11); BUN 15 mg/dL (7-18); Bilirubin, Total 1.08 mg/dL (0.2-1.0); CO2 27.3 mmol/L (21.0-32.0); CREATININE 1.1 mg/dL (0.55-1.02); Calcium 8.6 mg/dL (8.5-10.1); Chloride 96 mmol/L (98-107); Estimated GFR 50.17 (mL/min/1.73m2); Glucose 203 mg/dL (74-106); Magnesium 1.5 mg/dL (1.8-2.4); Potassium 3.5 mmol/L (3.5-5.1); Sodium 133 mmol/L (136-145); Total Protein 7.4 g/dL (6.4-8.2); Troponin I < 50 ng/L (< or =60)
--- NOTE | 2023-10-14 11:45 | RT.EKG_ITS ---
APPROVED REPORT Exam: Resting ECG Reason for Exam: syncope Patient Location: E HR:71 bpm ECG Measurements Heart Rate 71 AXIS AZ 204 P 61 QRSd 96 QRS -66 QT 442 T 51 QTc 481 Conclusion Sinus rhythm...normal P axis, V-rate 60- 99 Left atrial enlargement...P, P'>60mS, <-0.15mV V1 Left anterior fascicular block...axis(240,-40), init forces inf Probable left ventricular hypertrophy...multiple LVH criteria ST elevation, consider inferior injury...ST >0.08mV, II III aVF sinus rhythm, left axis, consider st elevation V1 V2 v J point elevation, given no reciprical changes
--- NOTE | 2023-10-14 12:00 | DI.CT_ITS ---
Exam(s) CT CHEST PE CTA EXAM: CT CHEST PE CTA CLINICAL HISTORY: covid, syncope. TECHNIQUE: Imaging Protocol: CT angiography of the chest was performed using pulmonary embolus gordy col. Multi planar reconstructions were performed. CONTRAST MATERIAL: Intravenous: Omnipaque 350 Contrast volume: 100 cc COMPARISON: CT CHEST WITHOUT CONTRAST from 11/15/[address] CHEST HIGH RESOLUTION from 12/30/[address] ABDOMEN PELVIS CTA from 06/27/2023 FINDINGS: CHEST: PULMONARY ARTERIES: There are no intraluminal filling defects to suggest acute pulmonary emboli. LUNGS: Bilateral interstitial fibrosis again noted. No pleural effusions.. There is, a nodular inf iltrate in the left upper lobe evident which measures 1.5 by 1.0 cm this exhibits minimal change fro m 2018 CT scan of 11/15/2017. The amount of interstitial fibrosis as progressed since 2018. No new nodules in either lung field, new infiltrates and no pleural effusions. No findings in trachea and m ainstem bronchi. No bronchiectasis MEDIASTINUM: There is no hilar nor mediastinal adenopathy. No subcarinal adenopathy evident. Visuali zed thyroid appears unremarkable. CARDIAC: Heart size is upper normal. There is no pericardial effusion.Caliber of the thoracic aorta is within normal limits. No evidence of aortic dissection there is no significant shift of the interv entricular septum. PARTIALLY VISUALIZED UPPERMOST ABDOMEN: Calcification in the lateral limb of the left adrenal gland i s unchanged from 2018. However, there is a nodule evident in the right adrenal gland which was not p resent in 2018 and appears to have increased in size from 06/27/2023.. This measures approximately 2 x 1.6 by 3.5 cm craniocaudal. OSSEOUS: No significant osseous lesions.No fractures evident.. IMPRESSION: 1. No evidence of acute pulmonary emboli. No evidence of pulmonary infarction.No pleural effusions. Bilateral interstitial fibrosis noted which has progressively increased since 2018. Unchanged 1.5 c m chronic infiltrate in the left upper lobe. No new pulmonary nodules, given the history here. 2. There is increasing size nodule in the right adrenal gland, presently measuring 2 x 1.6 x 3.5 cm, larger than previous. Cannot exclude neoplasm including metastatic, given history here. Appropriate follow-up of this finding is recommended. 3. Findings in the opposite-left adrenal gland remain benign appearance and unchanged from prior stud ies. Called by myself to ER physician. RADIATION DOSE DELIVERED: Total DLP DATA REPOSITORY: All CT scans at this facility are submitted to the National Radiology Data Registry (NRDR) Dose Index Registry (DIR) with the [employer] (ACR). RADIATION OPTIMIZATION: All CT scans at this facility use at least one of these dose optimization te chniques: automated exposure control; mA and/or kV adjustment per patient size (includes targeted exa ms where dose is matched to clinical indication); or iterative reconstruction.
[2023-10-14 12:12] LABS: Bilirubin Negative (Negative); Blood Negative (Negative); Clarity Clear (Clear); Glucose Negative (Negative); Ketones Negative (Negative); Leukocyte Esterase Trace (Negative); Nitrite Negative (Negative); Specific Gravity 1.015 (1.005-1.025); Urobilinogen 0.2 mg/dL (Up to 0.2)
[2023-10-14 12:22] LABS: Bacteria Negative HPF (Negative); C & S Indicated? No; Casts Negative LPF (Negative); Crystals Negative HPF (Negative); Epithelial Cells Rare HPF (Negative); Mucus Negative (Negative); RBC 0-2 HPF (0-2); WBC 0-2 HPF (0-5)
[2023-10-14] MEDS: Normal Saline - Diluent 50 ML VIAL IJ (12:30)
[2023-10-14] MEDS: Omnipaque 350 MG/ML 100 ML BTL IJ (12:31)
[2023-10-14] MEDS: MAGNESIUM SULFATE 1 GM/100 ML BAG IVINF (13:13)
[2023-10-14 14:33] LABS: Troponin I < 50 ng/L (< or =60)
--- NOTE | 2023-10-14 14:44 | DI.VRAD_ITS ---
Addendum created by Elma Cavazos MD on 10/14/2023 3:00:22 PM EDT: 2.7 x 2.7 cm soft tissue right adrenal nodule, warrants further evaluation with dedicated adrenal CT or MRI. Initial report created on 10/14/2023 2:44:19 PM EDT: PROCEDURE INFORMATION: Exam: CTA Chest With Contrast Exam date and time: 10/14/2023 12:32 PM Age: 83 years old Clinical indication: Other: Covid, syncope TECHNIQUE: Imaging protocol: Computed tomographic angiography of the chest with contrast. Exam focused on the arteries. 3D rendering (Not supervised by radiologist): MIP and/or 3D reconstructed images were created by the technologist. Radiation optimization: All CT scans at this facility use at least one of these dose optimization techniques: automated exposure control; mA and/or kV adjustment per patient size (includes targeted exams where dose is matched to clinical indication); or iterative reconstruction. Contrast material: OMNI 350; Contrast volume: 100 ml; Contrast route: INTRAVENOUS (IV); COMPARISON: CT CHEST HIGH RESOLUTION 09/03/2022 14:05 FINDINGS: Limitations: Streak artifact. Pulmonary arteries: Normal. No pulmonary emboli. Aorta: Atherosclerotic disease. No aortic aneurysm. No aortic dissection. Lungs: Increasing size of a ground-glass density in the left upper lobe series 7, image 100 measuring 1.2 cm on the current exam consistent with a nodular ground-glass opacity. Coarse peripheral reticular markings with mild emphysematous changes. Coarse reticular markings at the lung bases. Pleural spaces: Unremarkable. No pneumothorax. No pleural effusion. Heart: Unremarkable. No cardiomegaly. No pericardial effusion. Lymph nodes: Again noted mediastinal and hilar lymph nodes. Diaphragm: Hiatal hernia. Bones/joints: Multilevel degenerative changes of the spine. Soft tissues: Unremarkable. IMPRESSION: 1. 1.2 cm nodular ground-glass opacity warrants short-term interval follow-up in 3 months to evaluate for possible developing lung carcinoma. 2. 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 3. Additional findings as discussed above. Dictated and Authenticated by: Elma Cavazos MD. Ordering:BETTY Walton MD
== END 2023-10-14 15:27 | disposition home or self-care (01) ==
PROVIDERS: Emergency Provider Physician Assistant; PCP Nurse Practitioner Family
DX: U07.1 COVID-19 (principal); R11.2 Nausea with vomiting, unspecified; R19.7 Diarrhea, unspecified; R53.1 Weakness; R55 Syncope and collapse
CPT/HCPCS: 36415; 36416; 71275; 80053; 82805; 82962; 93005; 96361; 96365; 96375; 99285; 81003; 81015; 83735; 84484; 85025; 93010; 99283; J0780; J3475; J3490

== ENCOUNTER 2023-11-02 22:00 | Outpatient (REF) | payer MEDICARE, SELFPAY ==
[2023-11-02 16:04] LABS: HCT 40.3 % (36.0-46.0); HGB 13.3 g/dL (11.2-15.7); MCH 31.5 pg (27.0-33.0); MCV 96 fL (80-95); MPV 12.7 fL (8.0-11.0); Platelet Count 132 10^3/uL (130-400); RBC 4.22 10^6/uL (3.93-5.22); RDW 13.1 % (11.7-14.6); RDW-SD 46.1 fL; WBC 4.39 10^3/uL (4.4-10.8)
[2023-11-02 17:01] LABS: Hemoglobin A1C 5.7 % (<5.7)
== END 2023-11-02 22:01 | disposition home or self-care (01) ==
LOC: NCHCN 22:00
PROVIDERS: PCP Nurse Practitioner Family; Visit Provider Nurse Practitioner Family
DX: E11.9 Type 2 diabetes mellitus without complications (principal); I10 Essential (primary) hypertension
CPT/HCPCS: 85027; 83036; 85610

== ENCOUNTER 2023-11-16 03:02 | Outpatient (CLI) | payer MEDICARE, SELFPAY ==
--- NOTE | 2023-11-16 | DI.DEXA_ITS ---
Exam(s) XR DEXA BONE DENSITY W/WO FRED EXAM: XR DEXA BONE DENSITY W/WO FRED CLINICAL HISTORY: SCREENING FOR OSTEOPOROSIS IN POSTMENOPAUSAL WOMAN,Z78.0 TECHNIQUE: COMPARISON: CR XR DEXA BONE DENSITY W/WO FRED from 03/13/2019 CR XR HIP RT COMPLETE AP PELVIS from 02/27/2023 FINDINGS: Lateral Spine Image: Unremarkable. No compression deformities identified. Left hip: Total T-Score: 2.1. This compares to 1.6 on the prior examination. Total Z-Score: 4.3 T- and Z-scores: Within normal limits. Lumbar Spine: Total T-Score: 3.1. This compares to 2.3 on the prior examination. Total Z-Score: 5.8 T- and Z-scores: Within normal limits. IMPRESSION: No evidence of osteoporosis.
== END 2023-11-16 03:22 ==
LOC: DI 03:02
PROVIDERS: PCP Nurse Practitioner Family; Visit Provider Nurse Practitioner Family
DX: Z78.0 Asymptomatic menopausal state (principal); Z13.820 Encounter for screening for osteoporosis
CPT/HCPCS: 77080

== ENCOUNTER 2023-11-22 02:00 | Outpatient (CLI) | payer MEDICARE, SELFPAY ==
[2023-11-22] MEDS: Gadoterate meglumine 20 ML VIAL 14 ML IVP (08:07)
--- NOTE | 2023-11-22 08:25 | DI.MRI_ITS ---
Exam(s) MR ABDOMEN WO/W EXAM: MR ABDOMEN WO/W CLINICAL HISTORY: E27.9 Disorder adrenal gland, FU CTA ED 10-14-23 TECHNIQUE: Multiplanar multisequence MRI was performed with both pre and post contrast infused seque nces. Contrast injected sequences were performed following IV injection of 14 cc of Dotarem. COMPARISON: CT CT ABDOMEN PELVIS CTA from 06/27/[address] CHEST PE CTA from 10/14/2023 FINDINGS: VISUALIZED LUNG BASES: No pleural effusions evident. There is no ascites evident. LIVER: No discrete focal hepatic lesions evident. No dilated intrahepatic ducts. No obvious steatos is. BILIARY: Gallbladder is not seen and presumed to be surgically absent. CBD diameter is commensurate with post cholecystectomy status.Not significantly dilated. PANCREAS: There is no evidence of pancreatic mass nor dilatation of the pancreatic duct. SPLEEN: Spleen is not enlarged and there are no intrasplenic lesions.Splenic and portal veins are pat ent ADRENALS: Left adrenal gland exhibits normal size. The right adrenal gland is slightly prominent in size, consistent with findings on recent CT scan of 10/14/2023. Has not increased since that time, i ndeed appearing slightly smaller than on the CT scan of 10/14/2023. Presently measures 2 cm AP by 1 cm wide by 2.5 cm craniocaudal (prior measurement on 10/14/2023 was 2 x 1.6 x 3.5 cm). It exhibits m ild enhancement following contrast injection. Signal characteristics on out of phase imaging is not typical of a benign adenoma. KIDNEYS: No solid renal masses. No hydronephrosis.No cysts evident. ABDOMINAL AORTA: Not enlarged and there is no significant para-aortic adenopathy. ANTERIOR ABDOMINAL WALL/GI: There is artifact in the anterior right abdominal wall musculature which I suspect is from prior fascial suture material from remote cholecystectomy.No abnormal collections a t this level. No evidence of bowel obstruction. OSSEOUS: There are no lytic osseous lesions in the field of view of this study. IMPRESSION: The recently described new right adrenal nodule seen on CT scan of 10/14/2023 appears to have slightl y decreased in size on today's MRI exam. Signal characteristics are not typical of a benign adenoma and therefore this requires continued follow-up. The opposite-left adrenal gland exhibits normal siz e. Recommend repeat MRI in 6 months with in and out of phase imaging. This would not require IV contras t injection. DATA REPOSITORY:
== END 2023-11-22 02:20 ==
LOC: DI 02:00
PROVIDERS: PCP Nurse Practitioner Family; Visit Provider Nurse Practitioner Family
DX: E27.8 Other specified disorders of adrenal gland (principal)
CPT/HCPCS: 74183

== ENCOUNTER → 2023-12-20 09:02 | Outpatient (BNVA) | payer MEDICARE, SELFPAY | PROVIDERS: PCP Nurse Practitioner Family; Referring Provider Nurse Practitioner Family; Visit Provider Physician Assistant Surgical | DX: J84.9 Interstitial pulmonary disease, unspecified (principal); R91.1 Solitary pulmonary nodule | CPT/HCPCS: 99214 ==

== ENCOUNTER 2023-12-22 02:52 | Outpatient (CLI) | payer MEDICARE, SELFPAY ==
[2023-12-22] MEDS: Levalbuterol HFA 15 GM INH 4 PUFF IH (11:27)
[2023-12-22] MEDS: Inhaler, Assist Device 1 EACH MC (11:28)
--- NOTE | 2023-12-26 16:32 | W.PFT ---
Date of service: 12/22/23 Time of Service: 09:54 Pulmonary Function Test Result Indications: ILD Interpretation Spirometry: There is no airflow limitation. No bronchodilator response. Lung Volumes: Normal lung volumes Diffusion Capacity: Normal diffusion Airway Pressure: Normal airways resistance. Clinical Correlation therefore is recommended.
== END 2023-12-22 02:53 | disposition home or self-care (01) ==
LOC: RT 02:52
PROVIDERS: PCP Nurse Practitioner Family; Visit Provider Student in an Organized Health Care Education/Training Program
DX: J84.9 Interstitial pulmonary disease, unspecified (principal)
CPT/HCPCS: 94060; 94726; 94729

== ENCOUNTER 2024-01-04 01:39 | Outpatient (CLI) | payer MEDICARE, SELFPAY ==
--- NOTE | 2024-01-04 | DI.CT_ITS ---
Exam(s) CT CHEST WO EXAM: CT CHEST WO CLINICAL HISTORY: ABNL CHEST CT R93.89. TECHNIQUE: Multi planar reconstructions were performed. CONTRAST MATERIAL: None COMPARISON: CT CT CHEST HIGH RESOLUTION from 12/30/2022 FINDINGS: CHEST: LUNGS: Small area of infiltrate in the left upper lobe appears unchanged. No new confluent infiltrat es nor pleural effusions but there is relatively symmetrical bilateral interstitial fibrosis disease again noted involving all lobes of both lungs, again most prominent in the bilateral lung bases poste rior and lateral basal segments of both lower lobes MEDIASTINUM: There is no obvious hilar nor mediastinal adenopathy. Visualized thyroid unremarkable.No obvious axillary adenopathy CARDIAC: Heart size is normal. There is no pericardial effusion.Heavily calcified mitral valve annul us is noted.. Coronary artery calcification noted. VISUALIZED UPPER ABDOMEN:Calcification in the lateral limb of the left adrenal gland is unchanged. S light thickening of the limbs of the right adrenal gland noted. No discrete adrenal mass. OSSEOUS: No significant osseous lesions.No fractures.. IMPRESSION: 1. Again noted is bilateral symmetrical interstitial fibrosis disease involving all lobes but again n oted be most prominent in the bilateral lung bases involving the posterior and lateral basal segments of both lower lobes. 2. Small area of infiltrate in the left upper lobe is unchanged. 3. No new infiltrates and no pleural effusions nor intrathoracic adenopathy. RADIATION DOSE DELIVERED: 207.84mGy.cm Total DLP DATA REPOSITORY: All CT scans at this facility are submitted to the National Radiology Data Registry (NRDR) Dose Index Registry (DIR) with the [employer] (ACR). RADIATION OPTIMIZATION: All CT scans at this facility use at least one of these dose optimization te chniques: automated exposure control; mA and/or kV adjustment per patient size (includes targeted exa ms where dose is matched to clinical indication); or iterative reconstruction.
== END 2024-01-04 01:59 ==
LOC: DI 01:39
PROVIDERS: PCP Nurse Practitioner Family; Visit Provider Nurse Practitioner Family
DX: R93.89 Abnormal findings on diagnostic imaging of other specified body structures (principal)
CPT/HCPCS: 71250

== ENCOUNTER 2024-01-04 18:16 | Outpatient (REF) | payer MEDICARE, SELFPAY ==
[2024-01-04 16:43] LABS: Abs Immature Grans 0.01 10^3/uL (0.0-0.06); Absolute Basophil Count 0.05 10^3/uL (0.0-0.2); Absolute Eosinophil Count 0.32 10^3/uL (0.0-0.7); Absolute Lymphocyte Count 1.65 10^3/uL (1.2-3.4); Absolute Monocyte Count 0.43 10^3/uL (0.1-0.8); Basophils % 1.1 %; Eosinophils % 7.2 %; HCT 41.6 % (36.0-46.0); HGB 13.8 g/dL (11.2-15.7); Immature Grans % 0.2 %; MCH 31.9 pg (27.0-33.0); MCHC 33.2 % (32.0-36.0); MCV 96 fL (80-95); MPV 12.4 fL (8.0-11.0); Monocytes % 9.6 %; Neutrophils % 44.9 %; Platelet Count 171 10^3/uL (130-400); RBC 4.33 10^6/uL (3.93-5.22); RDW 12.9 % (11.7-14.6); WBC 4.46 10^3/uL (4.4-10.8)
[2024-01-04 17:43] LABS: ALT 24 U/L (14-59); AST 24 U/L (15-37); Albumin 3.7 g/dL (3.4-5.0); Alkaline Phosphatase 64 U/L (46-116); Anion Gap 9.4 mmol/L (3-11); BUN 19 mg/dL (7-18); Bilirubin, Total 1.09 mg/dL (0.2-1.0); CO2 28.6 mmol/L (21.0-32.0); Calcium 9.8 mg/dL (8.5-10.1); Calculated LDL 34 mg/dL (<100); Chloride 104 mmol/L (98-107); Cholesterol 122 mg/dL (<200); Estimated GFR 56.25 (mL/min/1.73m2); Glucose 136 mg/dL (74-106); HDL Cholesterol 59 mg/dL (40-60); Potassium 4.1 mmol/L (3.5-5.1); Sodium 142 mmol/L (136-145); Total Protein 7.8 g/dL (6.4-8.2); Triglyceride 145 mg/dL (<150)
== END 2024-01-04 18:17 | disposition home or self-care (01) ==
LOC: NCHCN 18:16
PROVIDERS: PCP Nurse Practitioner Family; Visit Provider Nurse Practitioner Family
DX: E78.5 Hyperlipidemia, unspecified (principal)
CPT/HCPCS: 80053; 80061; 85025

== ENCOUNTER → 2024-01-16 10:25 | Outpatient (BNVA) | payer MEDICARE, SELFPAY | PROVIDERS: PCP Nurse Practitioner Family; Visit Provider Internal Medicine Cardiovascular Disease | DX: I25.10 Atherosclerotic heart disease of native coronary artery without angina pectoris (principal) | CPT/HCPCS: 99213 ==

== ENCOUNTER 2024-04-29 02:16 | Outpatient (CLI) | payer MEDICARE, SELFPAY ==
[2024-04-29 09:20] LABS: ALT 27 U/L (14-59); AST 26 U/L (15-37); Albumin 3.7 g/dL (3.4-5.0); Alkaline Phosphatase 55 U/L (46-116); BUN 27 mg/dL (7-18); Bilirubin, Total 1.46 mg/dL (0.2-1.0); CREATININE 0.9 mg/dL (0.55-1.02); Calcium 9.8 mg/dL (8.5-10.1); Chloride 103 mmol/L (98-107); Estimated GFR 63.83 (mL/min/1.73m2); Glucose 156 mg/dL (74-106); Magnesium 1.7 mg/dL (1.8-2.4); Potassium 4.2 mmol/L (3.5-5.1); Sodium 139 mmol/L (136-145); Total Protein 7.7 g/dL (6.4-8.2)
== END 2024-04-29 02:17 | disposition home or self-care (01) ==
PROVIDERS: PCP Nurse Practitioner Family; Visit Provider Nurse Practitioner Family
DX: K21.9 Gastro-esophageal reflux disease without esophagitis (principal); K76.0 Fatty (change of) liver, not elsewhere classified
CPT/HCPCS: 36415; 80053; 83735

== ENCOUNTER 2024-05-29 02:38 | Outpatient (CLI) | payer MEDICARE, SELFPAY ==
--- NOTE | 2024-05-29 | DI.MRI_ITS ---
Exam(s) MR ABDOMEN WO EXAM: MR ABDOMEN WO CLINICAL HISTORY: Nodule of adrenal cortex, E27.8-other specified disorders of adrenal gland, TECHNIQUE: Multiplanar multisequence MRI was performed with both pre and post contrast infused seque nces. Contrast injected sequences were performed following IV injection of cc of Dotarem. CT CT CHEST PE CTA from 10/14/2023 MR MR ABDOMEN WO/W from 11/22/[address] CHEST WO from 01/04/2024 FINDINGS: VISUALIZED LUNG BASES: No pleural effusions evident. There is no ascites evident. LIVER: Liver size is normal. No focal hepatic lesions identified. Slight prominence intrahepatic du cts in the left lobe noted, most probably related to post cholecystectomy status in this elderly shaunna ent. BILIARY: The gallbladder is again noted be surgically absent. CBD diameter is 8-9 mm, consistent wit h post cholecystectomy status and advanced age. There are no calculi seen within the CBD. PANCREAS: There is no evidence of pancreatic mass nor dilatation of the pancreatic duct. SPLEEN: Spleen is not enlarged and there are no intrasplenic lesions. ADRENALS: Left adrenal gland again appears unremarkable. Please note that there is a small calcifica tion in the lateral limb of the left adrenal gland seen on prior CT scans. This is a finding which w ould be not perceptible on MRI scan due to nonmobile protons within the calcium. Nevertheless, this is a benign finding. With respect of the right adrenal gland, it remains unchanged with some thickening of the genu, uncha nged. There is no increasing size nodule evident. KIDNEYS: No solid renal masses. No hydronephrosis.Tiny benign cysts noted in the left kidney. Does not require further workup. ABDOMINAL AORTA: Not enlarged and there is no significant para-aortic adenopathy. ANTERIOR ABDOMINAL WALL/GI: There is no evidence of significant anterior abdominal wall hernia in the field of view of this study.Is no evidence of obvious bowel obstruction. OSSEOUS: There are no lytic osseous lesions in the field of view of this study. IMPRESSION: 1. Stable benign appearance of previously described findings in the right adrenal gland. Left adrena l gland remains unremarkable. 2. Gallbladder surgically absent. Slightly increased diameter of the biliary tree is related to post cholecystectomy status and patient's advanced age. DATA REPOSITORY:
== END 2024-05-29 02:58 ==
LOC: DI 02:39
PROVIDERS: PCP Nurse Practitioner Family; Visit Provider Nurse Practitioner Family
DX: E27.8 Other specified disorders of adrenal gland (principal)
CPT/HCPCS: 74181

== ENCOUNTER → 2024-07-24 07:56 | Outpatient (BNVA) | payer MEDICARE, SELFPAY | PROVIDERS: PCP Nurse Practitioner Family; Referring Provider Nurse Practitioner Family; Visit Provider Physician Assistant Surgical | DX: J84.9 Interstitial pulmonary disease, unspecified (principal); R91.1 Solitary pulmonary nodule | CPT/HCPCS: 99214 ==

== ENCOUNTER 2024-10-22 04:38 | Outpatient (CLI) | payer MEDICARE, SELFPAY ==
[2024-10-22 07:45] LABS: Hemoglobin A1C 5.6 % (<5.7)
[2024-10-22 08:05] LABS: ALT 26 U/L (14-59); AST 19 U/L (15-37); Albumin 3.6 g/dL (3.4-5.0); Alkaline Phosphatase 67 U/L (46-116); Anion Gap 7.6 mmol/L (3-11); BUN 16 mg/dL (7-18); Bilirubin, Total 1.3 mg/dL (0.2-1.0); CO2 30.4 mmol/L (21.0-32.0); Calcium 9.8 mg/dL (8.5-10.1); Chloride 100 mmol/L (98-107); Estimated GFR 73.06 (mL/min/1.73m2); Glucose 142 mg/dL (74-106); Magnesium 1.8 mg/dL (1.8-2.4); Potassium 3.7 mmol/L (3.5-5.1); Sodium 138 mmol/L (136-145); Total Protein 8.0 g/dL (6.4-8.2)
[2024-10-22 08:22] LABS: COMMENT (LAB VIEW ONLY) 92.42 mg/dL; Microalb ug/mg Crea 41.2 ug/mg Cr
== END 2024-10-22 04:39 | disposition home or self-care (01) ==
LOC: LBO 04:38
PROVIDERS: PCP Nurse Practitioner Family; Visit Provider Nurse Practitioner Family
DX: E11.9 Type 2 diabetes mellitus without complications (principal)
CPT/HCPCS: 36415; 80053; 82043; 82570; 83036; 83735

== ENCOUNTER 2024-11-12 14:25 | Outpatient (CLI) | payer MEDICARE, SELFPAY ==
--- NOTE | 2024-11-12 | DI.CT_ITS ---
Exam(s) CT ABDOMEN PELVIS W EXAM: CT ABDOMEN PELVIS W CLINICAL HISTORY: ABD CRAMPS, UNSPECIFIED ABD PAIN R10.9. TECHNIQUE: Imaging Protocol: Axial computed tomography images with coronal and sagittal reformatted images were created and reviewed CONTRAST MATERIAL: Intravenous: Omnipaque 350 Contrast volume:75 ml Oral: Yes COMPARISON: CT CT CHEST PE CTA from 10/14/2023 FINDINGS: ABDOMEN and PELVIS: Lung Bases: No acute findings. Interstitial changes greater peripherally. The mitral annulus heavily calcified. Liver: Normal density. No suspicious mass. Gallbladder and biliary tract: Cholecystectomy. No biliary dilation. Pancreas: Normal density. No abnormal calcifications or inflammatory process. No evidence of mass. Spleen: Normal. Kidneys: Normal size, contour and axis. No radiodense stones. No obstructive uropathy. No suspicious masses seen. Adrenal glands: No masses seen. Vasculature: Abdominal aorta non-dilated. Atherosclerotic changes. Soft tissues: Unremarkable. Bladder: No gross wall thickening. No calculi.No focal mass. Bowel: No obstruction. No bowel wall thickening. Diverticulosis of the sigmoid. No evidence of diverticulitis. The appendix is not visualized. Peritoneal cavity: No ascites. No focal collection. No mesenteric inflammatory response. No free air. Bones: Unremarkable for age. Reproductive organs: Unremarkable. Lymph nodes: No pathologically enlarged lymph nodes. IMPRESSION:: No acute abnormality in the abdomen or pelvis. Sigmoid diverticulosis. No evidence of diverticulitis. Chronic pulmonary interstitial changes. RADIATION DOSE DELIVERED: Total DLP DATA REPOSITORY: All CT scans at this facility are submitted to the National Radiology Data Registry (NRDR) Dose Index Registry (DIR) with the [employer] ([employer]). RADIATION OPTIMIZATION: All CT scans at this facility use at least one of these dose optimization techniques: automated exposure control; mA and/or kV adjustment per patient size (includes targeted exams where dose is matched to clinical indication); or iterative reconstruction.
[2024-11-12] MEDS: Barium Sulfate 2% W/V-Creamy Vanilla Smoothie 450 ML BTL PO (11:40)
[2024-11-12] MEDS: Barium Sulfate 2% W/V-Berry Smoothie 450 ML BTL PO (11:40)
[2024-11-12] MEDS: Normal Saline Flush 10 ML SYR IVP (14:07)
[2024-11-12] MEDS: Omnipaque 350 MG/ML 500 ML BTL-Imaging package IJ (14:09)
[2024-11-12] MEDS: Normal Saline - Diluent 50 ML VIAL IJ (14:09)
== END 2024-11-12 14:45 ==
LOC: DI 14:26
PROVIDERS: PCP Nurse Practitioner Family; Visit Provider Nurse Practitioner Family
DX: K57.33 Diverticulitis of large intestine without perforation or abscess with bleeding (principal); R91.8 Other nonspecific abnormal finding of lung field
CPT/HCPCS: 74177

== ENCOUNTER 2025-01-09 01:51 | Outpatient (CLI) | payer MEDICARE, SELFPAY ==
--- NOTE | 2025-01-15 08:52 | W.PFT ---
Date of service: 01/09/25 Time of Service: 10:01 Pulmonary Function Test Result Indications: Interstitial lung disease Impression 1. Good patient effort was noted. ATS standards for reproducibility were met. 2. Normal spirometry. 3. TLC was normal. No evidence of restrictive lung disease 4. DLCO was normal indicating normal alveolar gas exchange
== END 2025-01-09 01:52 | disposition home or self-care (01) ==
LOC: RT 01:51
PROVIDERS: PCP Nurse Practitioner Family; Visit Provider Physician Assistant Surgical
DX: J84.9 Interstitial pulmonary disease, unspecified (principal)
CPT/HCPCS: 94010; 94726; 94729

== ENCOUNTER 2025-01-14 10:33 | Outpatient (CLI) | payer MEDICARE, SELFPAY ==
--- NOTE | 2025-01-14 10:30 | RT.EKG_ITS ---
APPROVED REPORT Exam: Resting ECG Reason for Exam: CAD Patient Location: O HR:74 bpm ECG Measurements Heart Rate 74 AXIS NV 183 P 26 QRSd 99 QRS -64 QT 414 T 64 QTc 460 Conclusion Sinus rhythm...normal P axis, V-rate 50- 99 Left atrial enlargement...P, P'>60mS, <-0.15mV V1 Abnormal R-wave progression, early transition...QRS area>0 in V2 Left anterior fascicular block Baseline wander in lead(s) V4,V5
== END 2025-01-14 10:34 | disposition home or self-care (01) ==
LOC: DI.CARD 10:33
PROVIDERS: PCP Nurse Practitioner Family; Visit Provider Internal Medicine Cardiovascular Disease
DX: I25.10 Atherosclerotic heart disease of native coronary artery without angina pectoris (principal); I10 Essential (primary) hypertension; I44.4 Left anterior fascicular block
CPT/HCPCS: 93010

== ENCOUNTER → 2025-01-14 10:36 | Outpatient (BNVA) | payer MEDICARE, SELFPAY | PROVIDERS: PCP Nurse Practitioner Family; Referring Provider Nurse Practitioner Family; Visit Provider Internal Medicine Cardiovascular Disease | DX: I25.10 Atherosclerotic heart disease of native coronary artery without angina pectoris (principal); I10 Essential (primary) hypertension; Z79.899 Other long term (current) drug therapy | CPT/HCPCS: 99213; 93005 ==

== ENCOUNTER → 2025-01-22 10:23 | Outpatient (BNVA) | payer MEDICARE, SELFPAY | PROVIDERS: PCP Nurse Practitioner Family; Referring Provider Nurse Practitioner Family; Visit Provider Physician Assistant Surgical | DX: J84.9 Interstitial pulmonary disease, unspecified (principal); R91.1 Solitary pulmonary nodule; Z87.891 Personal history of nicotine dependence; Z23 Encounter for immunization | CPT/HCPCS: 90471; 90684; 99214 ==